=== PATIENT | male | born 1935 | race Caucasian/White ===

== ENCOUNTER → 2016-06-18 | Outpatient (CLI) | payer BC ==
[~2016-06-18] MED LIST: ACET-1256 PO; AVD5 PO; CHOL1CAP57 PO; FLUO40CA8 PO; OMEP20TA PO; SIMV40TA2 PO; STLS PO; ZOLP12.5 PO
--- NOTE | 2016-06-18 14:33 | DIAGNOSTIC IMAGING REPORT ---
RIGHT ELBOW 3 VIEWS CLINICAL HISTORY: Right elbow pain and swelling. No reported history of trauma. FINDINGS: 3 views of the right elbow are obtained. No prior studies are available for comparison at the time of dictation. The skeletal structures are osteopenic. There is no radiographic evidence of fracture. There is degenerative spurring from the radial head. Enthesophytes arise from the lateral humeral epicondyle. There is no joint effusion. A large enthesophyte is seen at the triceps insertion. Mild dorsal soft tissue edema is noted. IMPRESSION: 1. Osteopenia and degenerative change as above. No acute bony abnormality is identified. 2. There is dorsal soft tissue edema, possibly represent bursitis. Clinical correlation will be required. Electronically signed by: Sukhi Larose M.D. 06/18/2016 2:31 PM
== END | disposition home or self-care (01) ==
LOC: C.RAD1850 14:14
PROVIDERS: ATTEND Nurse Practitioner Family
DX: M25.521 Pain in right elbow (principal); M85.80 Other specified disorders of bone density and structure, unspecified site

== ENCOUNTER → 2016-08-06 | Outpatient (CLI) | payer BC | END | disposition home or self-care (01) | LOC: C.RDSM 13:45 | PROVIDERS: ATTEND Physical Medicine & Rehabilitation Sports Medicine | DX: M25.561 Pain in right knee (principal) ==

== ENCOUNTER → 2016-09-07 | Outpatient (CLI) | payer BC | END | disposition home or self-care (01) | LOC: C.RDSM 09-05 12:04 | PROVIDERS: ATTEND Physical Medicine & Rehabilitation Sports Medicine | DX: M25.522 Pain in left elbow (principal) ==

== ENCOUNTER → 2016-11-07 | Outpatient (CLI) | payer BC ==
[~2016-11-07] MED LIST changes: -ZOLP12.5 PO
--- NOTE | 2016-11-07 12:11 | DIAGNOSTIC IMAGING REPORT ---
PET/CT HISTORY: Esophageal cancer. TECHNIQUE: PET/CT was performed from the base of the skull through the pelvis following the intravenous administration of 15 mCi of F18-FDG. Non-contrast CT imaging was performed over the same range without breath-hold for attenuation correction of PET images and anatomic correlation, but not for primary interpretation as it is not of standard diagnostic quality. CT DOSE: COMPARISON: PET CT 04/18/2016. FINDINGS: HEAD AND NECK: There is no FDG-avid disease or significant lymphadenopathy in the imaged portions of the head and the neck. Vocal cord paralysis is again noted. CHEST: The patient is status post esophagectomy with gastric pull-up. Stable 6 mm upper right peritracheal lymph node. This does not demonstrate abnormal FDG uptake. The superior mediastinal lymph node adjacent to the left proximal portion of the gastric pull-up measures 1.5 x 1.0 cm. This is similar in size compared to the prior study. However, this now demonstrates moderate FDG uptake with an SUV max of 4.1. No additional sites of FDG avid disease within the chest. Right posterior pleural thickening remains unchanged. No change in the 2 cm nodular density at the base of the right lower lobe which favors atelectasis or scarring. This does not demonstrate abnormal FDG uptake. Small patchy density at the base of the lingula has improved. There is a 1 cm groundglass irregular nodule within the right upper lobe on image 91. This remains unchanged. This does not demonstrate abnormal FDG uptake. ABDOMEN/PELVIS: A focal 1.5 cm area of moderate FDG uptake within the left hepatic lobe on image 119 within SUV max of 4.1. No definite corresponding lesion on CT. This could represent misregistration with the adjacent bowel. Stable hypodense lesions within the liver which likely represent cysts. No FDG avid retroperitoneal or pelvic lymphadenopathy. Colonic diverticulosis. The prostate gland is enlarged. 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 MUSCULOSKELETAL: There is no FDG-avid or destructive bone lesion. IMPRESSION: 1. Interval development of moderate FDG uptake associated with the left superior mediastinal lymph node consistent with progression of disease. 2. A focal 1.5 cm area of moderate FDG uptake within the left hepatic lobe. There is no definite corresponding lesion on CT. This may represent misregistration with the adjacent bowel. However, this bears watching future examinations to exclude a developing metastatic lesion. 3. Otherwise, no FDG avid disease identified. 4. Stable 1 cm irregular groundglass nodule within the right upper lobe. This does not demonstrate abnormal FDG uptake. However, the stability favors a low-grade neoplasm. Electronically signed by: Nathaniel Ivory M.D. 11/07/2016 12:10 PM Dictated Date/Time: 11/07/2016 11:45 AM
== END | disposition home or self-care (01) ==
LOC: C.PET 08:10
PROVIDERS: ATTEND Internal Medicine Hematology
DX: C15.5 Malignant neoplasm of lower third of esophagus (principal); R91.1 Solitary pulmonary nodule; R93.2 Abnormal findings on diagnostic imaging of liver and biliary tract

== ENCOUNTER → 2017-01-30 | Outpatient (CLI) | payer BC ==
--- NOTE | 2017-01-30 13:00 | DIAGNOSTIC IMAGING REPORT ---
TWO VIEW CHEST CLINICAL HISTORY: Bronchitis. FINDINGS: PA and lateral chest radiographs are compared to study dated 12/21/2015 and correlated with chest CT dated 06/28/2014. The cardiomediastinal silhouette is unremarkable. There is atherosclerotic calcification of the thoracic aorta. Chronic interstitial thickening is similar to previous. No airspace consolidation or pleural effusion is identified. There is no pneumothorax. The skeletal structures are osteopenic. Degenerative change is noted throughout the thoracic spine. IMPRESSION: No active disease in the chest. Electronically signed by: Sukhi Larose M.D. 01/30/2017 12:59 PM Dictated Date/Time: 01/30/2017 12:57 PM
== END | disposition home or self-care (01) ==
LOC: C.RAD 12:10
PROVIDERS: ATTEND Internal Medicine
DX: J40 Bronchitis, not specified as acute or chronic (principal)

== ENCOUNTER → 2017-04-29 | Outpatient (CLI) | payer BC ==
[2017-04-29 15:48] LABS: BASO % 0.2 %; BASO ABS # 0.01 K/uL (0-0.2); COMPLETE YES; EOS % 2.1 %; HEMATOCRIT 42.4 % (42-52); IG% 0.2 %; LYMPH % 28.1 %; LYMPH ABS # 1.59 K/uL (1.2-3.4); MEAN CELL VOLUME 91.6 fL (80-100); MEAN CORPUSCULAR HEMOGLOBIN 30.9 pg (25-34); MEAN CORPUSCULAR HGB CONC 33.7 g/dl (32-36); MEAN PLATELET VOLUME 9.4 fL (7.4-10.4); MONO % 9.7 %; NEUT % 59.7 %; PLATELET COUNT 284 K/uL (130-400); RED BLOOD COUNT 4.63 M/uL (4.7-6.1); WHITE BLOOD COUNT 5.66 K/uL (4.8-10.8)
[2017-04-29 16:00] LABS: ALT/SGPT 24 U/L (12-78); AST/SGOT 24 U/L (15-37); BLOOD UREA NITROGEN 20 mg/dl (7-18); BUN/CREATININE RATIO 14.8 (10-20); CALCIUM 8.8 mg/dl (8.5-10.1); CARBON DIOXIDE 27 mmol/L (21-32); CHLORIDE 107 mmol/L (98-107); CREATININE 1.36 mg/dl (0.60-1.40); GLUCOSE 93 mg/dl (70-99); POTASSIUM 3.5 mmol/L (3.5-5.1); SODIUM 142 mmol/L (136-145)
[2017-04-29 16:10] LABS: ALB/GLOB RATIO 0.9 (0.9-2); ALKALINE PHOSPHATASE 96 U/L (45-117); THYROID STIMULATING HORMONE 0.977 uIu/ml (0.300-4.500)
== END | disposition home or self-care (01) ==
LOC: C.LABSPEC 15:28
PROVIDERS: ATTEND Internal Medicine
DX: C15.9 Malignant neoplasm of esophagus, unspecified (principal); R41.3 Other amnesia

== ENCOUNTER 2017-05-17 15:53 | Inpatient (IN) | payer BC, OTHER ==
[~2017-05-17] VITALS: Ht 171.4 cm; Wt 67.5 kg
[~2017-05-17 15:53] MED LIST changes: -OPTIRAY 320 IV PRN
[2017-05-17] MEDS ORDERED: ONDANSETRON INJ 8 MG in DEXTROSE 5% 50ML 50 ML IV PRN (16:00)
[2017-05-17] MEDS: DEXAMETHASONE INJ 10 MG in SYRINGE 0 ML IV ONE ×2 (16:30→17:45)
[2017-05-17 16:34] VITALS: BP 143/84; PULSE 91; TEMP 36.6; O2SAT 96
[2017-05-17 17:00] VITALS: BP 143/84; PULSE 91; TEMP 36.6; Ht 171.4 cm; Wt 67.5 kg
[2017-05-17 17:05] LABS: BASO % 0.2 %; BASO ABS # 0.01 K/uL (0-0.2); EOS % 1.7 %; HEMATOCRIT 43.5 % (42-52); IG% 0.2 %; LYMPH % 28.2 %; LYMPH ABS # 1.33 K/uL (1.2-3.4); MEAN CELL VOLUME 90.1 fL (80-100); MEAN CORPUSCULAR HEMOGLOBIN 30.4 pg (25-34); MEAN PLATELET VOLUME 8.7 fL (7.4-10.4); MONO % 5.1 %; NEUT % 64.6 %; PLATELET COUNT 271 K/uL (130-400); RED BLOOD COUNT 4.83 M/uL (4.7-6.1); WHITE BLOOD COUNT 4.71 K/uL (4.8-10.8)
[2017-05-17 17:16] LABS: PARTIAL THROMBOPLASTIN RATIO 1.2; PROTHROMBIN TIME (PATIENT) 10.6 SECONDS (9.0-12.0)
[2017-05-17 17:37] LABS: ALB/GLOB RATIO 1.1 (0.9-2); ALKALINE PHOSPHATASE 106 U/L (45-117); ALT/SGPT 23 U/L (12-78); AST/SGOT 26 U/L (15-37); BLOOD UREA NITROGEN 18 mg/dl (7-18); BUN/CREATININE RATIO 13.1 (10-20); CARBON DIOXIDE 29 mmol/L (21-32); CHLORIDE 103 mmol/L (98-107); CREATININE 1.36 mg/dl (0.60-1.40); GLUCOSE 185 mg/dl (70-99); SODIUM 137 mmol/L (136-145)
[2017-05-17 17:38] LABS: COMPLETE YES; MEAN CORPUSCULAR HGB CONC 33.8 g/dl (32-36)
[2017-05-17] MEDS ORDERED: ALPRAZOLAM 0.5 MG TAB PO PRN (17:45)
[2017-05-17] MEDS: DEXAMETHASONE INJ 4 MG in SYRINGE 0 ML IV SCH ×2 (17:49→22:16)
--- NOTE | 2017-05-17 18:18 | Radiation Oncology Consult ---
Radiation Oncology Consult Date / Reason May 17, 2017. Physicians Primary Care Provider: Dr. Ben Vargas Medical Oncologist: Dr. Iverson/ Radiation Oncologist: Dr. Faith Lacy Diagnosis (1) METASTATIC ESOPHAGEAL CA, BRAIN METS Stage: IV History of Present Illness I am seeing Mr. Fernandez in consultation at the request of Dr. Ben Vargas. The patient was seen at bedside and his was present for the entire consultation. ECOG PS: 1 Mr. Fernandez is a 81-year-old gentleman who presents with a history of recurrent metastatic esophageal cancer. As per the , the patient was recently going to restart chemotherapy due to recurrent disease (medical records from [facility] are unavailable at the time of consultation). The patient did have previous chemotherapy and radiation therapy in the past. More recently, the patient was complaining of issues with memory. Dr. Ben Vagras, his primary care physician, ordered a CT of the head without contrast on 05/17/2017 which revealed: "IMPRESSION: 1. Heterogeneous hyperattenuating intra-axial mass containing central calcifications involves the left temporal lobe measuring up to 5.2 cm. Extensive associated vasogenic edema is noted with sulcal effacement and mild rightward midline shift of 2 mm. Primary glial neoplasm or metastatic disease are differential considerations. Neurosurgical consultation and follow- up MRI of the brain with and without contrast recommended. 2. 11 x 4 mm focal area of low-attenuation of the left thalamus medial to the mass may reflect reactive edema or small infarction. 3. Atrophy with chronic microvascular ischemic changes." Dr. Ben Vargas has sent the patient [facility] for direct admission. We are now being asked to evaluate the patient for consideration of radiation therapy. Currently, the patient is stable overall. The patient denies significant headaches however he does admit to issues with short-term memory. He does have some fatigue. Pacemaker Hx Pacemaker: No Past History Past Medical/Surgical History: Reflux, Depression, Other (Insomnia, Hyperlipidemia) Specify Any Cancer Diagnosis: Esophageal cancer Surgical History Surgeries: Yes Surgeries & Dates: Bilateral trigger finger release Right Carpal Tunnel Release Radiation History History of Radiation Therapy: 08/2007 - 4500 cGy to the chest Chemotherapy History History of Chemotherapy: Previous history of chemotherapy. Was planning to undergo chemotherapy treatment shortly. Social History Smoking Status: Never Smoker Hx Tobacco Use In Past Year?: No Do You Dip or Chew Tobacco: Yes (QUIT 2007) Hx Alcohol Use: Yes (Occasionally) Hx Substance Use : No Allergies Coded Allergies: Iodinated Contrast Media (Verified Adverse Reaction, Unknown, HYPOTENSION , 05/17/17) Home Medications Scheduled Cholecalciferol (Vitamin D3), 1,000 INTUNIT PO QAM Dutasteride (Avodart *), 0.5 MG PO QAM Fluoxetine (Prozac), 40 MG PO QAM Omeprazole (Omeprazole), 20 MG PO BID Simvastatin (Zocor), 40 MG PO QAM Stool Softener (Stool Softener), 1 TAB PO QAM Scheduled PRN Acetaminophen (Tylenol), 1,000 MG PO Q6 PRN for Pain Review of Systems Comments: Comprehensive 13 system review completed. Physical Exam Height: (Feet) (Inches) (Centimeters) (Meters) Weight: (Pounds) (Ounces) (Kilograms) (Grams) Date Time Temp Pulse Resp B/P (MAP) Pulse Ox O2 Delivery O2 Flow Rate FiO2 05/17/17 16:34 36.6 91 18 143/84 (103) 96 General Appearance: WD/WN, no apparent distress Head: normocephalic, atraumatic Eyes: normal inspection Neck: supple, no adenopathy Respiratory/Chest: chest non-tender, lungs clear, normal breath sounds, no respiratory distress Cardiovascular: regular rate, rhythm, no edema, no gallop, no JVD, no murmur Abdomen/GI: normal bowel sounds, non tender, soft, no organomegaly, no pulsatile mass Back: normal inspection Extremities: normal inspection Neurologic/Psych: lotus notes developer II-XII nml as tested, alert, oriented x 3 Skin: normal color, warm/dry, no rash Pain Management Patient Reports Pain: No Patient Preferred Pain Scale: 0 - 10 Initial Pain Intensity: 0.0 Pain Management Plan No pain management plan as per radiation oncology. Laboratory Laboratory Results: not applicable Pathology Pathology Results: were reviewed, pending (Outside results unavailable) Imaging Imaging Studies: were reviewed, and pertinent findings noted below Imaging Comments Patient: SHANON FERNANDEZ Address1: [address] Rec: [id number] Address2: Acct ID: [id number] [facility] Zip: [place] [address] Date: 1935 Sex: M Room/Bed: Ref Phy: Butch Ribera M.D. SC: KalynCTS Att Phy: Butch Ribera M.D. Report #: [id number] Veronika Phy: Butch Ribera M.D. Test: HWO Admit Phy: Cake Icer And Packer: MARYAM Interpreting Phy: Vishal Wallace D.O. Diagnosis: MEMORY DEFICIT Ordering Phy: Butch Ribera M.D. Service Date: 05/17/17 Admit Date: 05/17/17 MNE: [id number] CONF: DICTATED BY: Vishal Wallace D.O.]] CC: Butch Ribera M.D. Endcc: [~ rep ct add3]] HEAD WITHOUT CONTRAST (CT) CLINICAL HISTORY: 81 years-old Male with MEMORY DEF. Memory loss . History of metastatic esophageal cancer. TECHNIQUE: Multiple axial CT images of the head were obtained without contrast. A dose lowering technique was utilized adhering to the principles of ALARA. CT DOSE: 614.27 mGy.cm COMPARISON: PET CT 04/17/2017. FINDINGS: There is a hyperattenuating mass heterogeneous mass containing areas of internal calcification within the left temporal lobe which appears intra-axial measuring 5.2 x 3.5 cm with extensive degree of surrounding vasogenic edema. There is associated sulcal effacement with gyral expansion within this distribution. 2 mm rightward midline shift with subfalcine herniation. There is partial effacement of the left lateral ventricle involving the frontal horn, body, atria and temporal horn. No hydrocephalus. There is mild to moderate atrophy with background chronic microvascular ischemic changes. Vascular calcifications are seen at the level the skull base. Focal area of low-attenuation measuring 11 x 4 mm is seen within the distribution of the left thalamus medial to the mass. No calvarial fracture. Mastoid air cells and middle ear cavities are clear. Soft tissues are unremarkable. Orbits are symmetric. IMPRESSION: 1. Heterogeneous hyperattenuating intra-axial mass containing central calcifications involves the left temporal lobe measuring up to 5.2 cm. Extensive associated vasogenic edema is noted with sulcal effacement and mild rightward midline shift of 2 mm. Primary glial neoplasm or metastatic disease are differential considerations. Neurosurgical consultation and follow-up MRI of the brain with and without contrast recommended. 2. 11 x 4 mm focal area of low-attenuation of the left thalamus medial to the mass may reflect reactive edema or small infarction. 3. Atrophy with chronic microvascular ischemic changes. Patient: SHANON FERNANDEZ Address1: [address] [place] [address] Rec: [id number] Address2: Acct ID: [id number] [facility] Zip: [place] [address] Date: 1935 Sex: M Room/Bed: Ref Phy: Butch Ribera M.D. SC: C.PET Att Phy: Shanon Iverson M.D. Report #: [id number] Veronika Phy: Butch Ribera M.D. Test: PETCTST Admit Phy: Cake Icer And Packer: BIJAN Interpreting Phy: Marbin Neri M.D. Diagnosis: LOWER THIRD ESOPHAGUS MALIGNANT NEOPLASM Ordering Phy: Shanon Iverson M.D. Service Date: 04/17/17 Admit Date: 04/17/17 MNE: PWRSCRIBE CONF: DICTATED BY: Marbin Neri M.D.]] CC: Butch Ribera M.D. Wolfe, David W., M.D. Endcc: [~ rep ct add3]] PET/CT SKULL-THIGH CLINICAL HISTORY: ESOPHAGEAL CANCER COMPARISON STUDY: 11/07/2016 FINDINGS: The patient was injected with 12.8 mCi of F 18 labeled FDG. Following the standard induction phase, PET/CT scanning was performed from the skull base to the upper thigh region. Within the base of the right neck, there is a new FDG avid nodule which fuses to a tiny 3 mm lymph node. There are new foci of increased FDG activity with SUV maximum of 6.7, which fuses to an ill-defined nodule abutting the vessels the right cervicothoracic inlet. There is a new focus of increased FDG activity with SUV maximum of 3 fusing to a 4 mm lymph node at the level of the sternal notch. There is a new focus of increased FDG activity with SUV maximum of 6.9 fusing to an ill-defined soft tissue nodule just inferior to the esophageal anastomosis within the left superior mediastinum. There is a new 8 mm right middle lobe pulmonary nodule, which is mildly FDG avid with SUV maximum of 1.9. Areas of presumed right basilar atelectasis remain stable. There is also a new 3 mm right apical pulmonary nodule which is not FDG avid. Within the liver, there is a stable right lobe hepatic hypodensity which is not FDG avid and may represent a cyst. There is no pathologic adrenal gland activity. There is no pathologic sky activity within the abdomen or pelvis. There is physiologic urinary tract and bowel activity. There is no pathologic skeletal activity. IMPRESSION: 1. Progressive metastatic disease. 2. New 8 mm FDG avid right middle lobe pulmonary nodule consistent with a pulmonary metastasis. Also evident is a new 3 mm right apical pulmonary nodule which is not FDG avid. 3. New intensely FDG avid lower cervical and superior mediastinal lymph nodes, consistent with metastatic disease Assessment & Recommendations Mr. Fernandez is a 81-year-old gentleman who presents with metastatic esophageal cancer to the brain. The patient was most recently planning to undergo a course of chemotherapy underneath the supervision of Dr. Iverson for recurrent metastatic disease (records unavailable to temporal consultation to confirm). The patient did have a CT of that without contrast completed today on 2016 which does potentially revealed a large metastatic deposit involving the left temporal lobe. The patient does have some issues with short-term memory. We have been asked to evaluate the patient for consideration of radiation therapy to the brain. After evaluating the patient, I recommended proceeding with an MRI of the brain with contrast to determine his full extent of disease. Additionally, I have discussed the case with Dr. Ben Vargas and we both agreed to initiate decadron to initially help with his symptoms. I have recommended Decadron 4 mg every 6 hours. If the patient continues to remain stable over the weekend, we have agreed to consider palliative whole brain radiation therapy and will bring him down for treatment planning and start radiation therapy on Saturday. I would recommend radiation therapy in 15 fractions. I have also recommended a medical oncology consultation and neurology consultation. We explained the indications, alternatives, benefits, risks and side effects of external beam radiation therapy to the brain. We explain the most common side effects including but not limited to skin erythema, skin break down, hair loss, radiation necrosis, fatigue, short-term memory loss, decreased neurocognitive performance, cerebral edema, hearing loss, damage to cochlea structures, seizures, loss of sensory and or motor function. We explained the treatment planning process and what to expect before during and after treatment. The patient understands and would be willing to consent to treatment. The patient and family had multiple questions which were answered to their full satisfaction. Thank you for allowing us to participate in the care of this patient. This chart was completed in part utilizing [employer] Speech Voice Recognition software. Attempts were made to minimize the grammatical errors, random word insertions, pronoun errors and incomplete sentences. Any formal questions or concerns about the content, text or information contained within the body of this dictation should be directly addressed to the provider for clarification. Faith Lacy MD Department of Radiation Oncology [facility] Total Time In Consultation I spent 30 minutes examining and counseling the patient. I spent 15 minutes completing this note. ADVERTISING SPECIALIST Copy To Butch Ribera M.D.
[2017-05-17] MEDS ORDERED: GADAVIST IV PRN (19:15)
--- NOTE | 2017-05-17 19:29 | DIAGNOSTIC IMAGING REPORT ---
MRI OF THE BRAIN COMBO CLINICAL HISTORY: Esophageal cancer. Metastatic disease. COMPARISON STUDY: CT of the brain dated 05/17/2017. TECHNIQUE: MRI of the brain was performed utilizing various T1 and T2-weighted sequences in the axial, sagittal, and coronal planes. Contrast-enhanced sequences were acquired following the administration of 6.5 cc of Gadavist. FINDINGS: Brain parenchyma: There are age-related involutional changes noting mild patchy subcortical and periventricular microangiopathic disease. There is a heterogeneous mass lesion identified in the left temporal lobe. This is T1 hyperintense suggesting hemorrhage. The lesion measures 4.8 x 5.8 x 3.9 cm. There is susceptibility artifact seen within this lesion on the gradient images which may be related to hemorrhage and/or calcifications. There is significant surrounding edema. This effaces the left lateral ventricle and the overlying cortical sulci. There is approximately 3 mm of [id number] midline shift. This lesion demonstrates an enhancing rim. Internal enhancement is likely present but difficult to delineate due to presumed hemorrhage. No additional enhancing lesion is identified. There is no restricted diffusion typical for acute ischemia. No extra-axial fluid collection is seen. The cerebellar tonsils are normal in configuration. Ventricles, sulci, and cisterns: Prominent secondary to involutional change. Pituitary and sella: Unremarkable. Intracranial vasculature: Normal flow voids are maintained at the skull base. Orbits: The bony orbits are grossly intact. Orbital contents are normal in appearance. Sinuses and mastoids: Clear. Calvarium: Unremarkable. Cervical cord: Partially visualized cervical spinal cord is normal in morphology and signal intensity. IMPRESSION: 1. As seen by CT, there is an approximately 6 cm T1 hyperintense and presumably hemorrhagic mass centered in the left temporal lobe with significant surrounding edema and mild midline shift. This likely represents a hemorrhagic metastasis given the history of esophageal carcinoma. A primary intracranial neoplasm is considered less likely but is the top differential consideration. 2. This lesion demonstrates peripheral enhancement and likely internal enhancement. This is difficult to differentiate given the intrinsic T1 hyperintensity. 3. No additional intracranial lesions are identified. 4. There is no evidence of acute ischemia. Electronically signed by: Sukhi Larose M.D. 05/17/2017 7:28 PM Dictated Date/Time: 05/17/2017 7:16 PM
--- NOTE | 2017-05-17 19:41 | Medical Consult ---
Consultation Date of Consultation: May 17, 2017. Attending Physician: Butch Ribera M.D. Reason for Consultation: history of esophageal cancer abnormal CT head with mass involving the left temporal lobe and vasogenic edema History of Present Illness 81 year old male with history of esophageal cancer followed by Dr Iverson. He recevied concurrent preoperative chemoRT at initial diagnosis follwoed by surgery at [facility] He was subsequently found to have recurrent disease and received chemotherapy with xeloda oxaliplatin and hereptin in 2011 In 03/2013 PET-CT scan showed no evidence of active disease In 12/2014 PET-CT scan showed sky changes in the paraesophageal areas and he underwent biopsy at that time that was positive for recurrence He received chemotherapy with xeloda, oxaliplatin and herceptin and his follow up scan showed good response and chemotherapy was discontinued and the patient was followed by observation In 01/2016 he had a PET-CT scan which showed persistence of a LN that had increased from 1.2 to 1.5cm and he was given the option of resuming herceptin or expectant follow up and he opted to be followed expectantly PET-CT scan in 10/[address] Iverson discussed with him and he was followed expectantly He had a follow up PET-CT scan PET-CT scan on 04/17/17 which showed progressive metastatic disease, new 8mm FDG avid RML nodule consistent with pulmonary metastasis and a new 3mmright apical pulmonary nodule which is not FDG avid. He also had evidence of new hypermetabolic lower cervical and superior mediastinal lymph nodes. Last follow up with Dr Iverson was on 04/23/17 and his plan was to resume herceptin due to the progression on the patient's PET-CT scan. Patient and his and daughter state that from about 6 weeks he notice mild frontal headache/discomfort on and off and memory changes. He states that he was forgetting names of his grandchildren and friends though he knew who they were. Also notice word finding difficulty and was confusing words. He states that this morning he had mild dizziness when he stood up for a few seconds but then it resolved. He denies any nausea or vomiting. He denies any paresthesias He denies any weakness He states that he has chronic lower abdominal pain Also recently completed a course of antibiotic for a URI. He denies any cough or shortness of breath He had CT head showing : "1. Heterogeneous hyperattenuating intra-axial mass containing central calcifications involves the left temporal lobe measuring up to 5.2 cm. Extensive associated vasogenic edema is noted with sulcal effacement and mild rightward midline shift of 2 mm. Primary glial neoplasm or metastatic disease are differential considerations. Neurosurgical consultation and follow-up MRI of the brain with and without contrast recommended. 2. 11 x 4 mm focal area of low-attenuation of the left thalamus medial to the mass may reflect reactive edema or small infarction. 3. Atrophy with chronic microvascular ischemic changes." ECOG PS 1 Past Medical/Surgical History PMH/PSH: high cholesterol, enlarged prostate, recurrent esophageal cancer, depression, insomnia EGD with biopsy, carpal tunnel surgery, surgical resection for esophageal cancer after chemoRT Social History lives with his Smoking Status: Never Smoker Smokeless Tobacco Use: Yes Alcohol Use: rare Drug Use: none Marital Status: Housing Status: lives with family Allergies Coded Allergies: Iodinated Diagnostic Agents (Verified Adverse Reaction, Intermediate, HYPOTENSION, 05/17/17) Current Inpatient Medications Current Inpatient Medications Medications (Trade) Dose Ordered Sig/Helder Route Start Time Stop Time Status Last Admin Dose Admin Dexamethasone Sodium Phosphate 4 mg/Syringe 1 ml @ 1 mls/min Q6H IV 05/17/17 22:00 06/16/17 21:59 Ondansetron HCl 8 mg/Dextrose 54 ml @ 200 mls/hr Q4H PRN IV 05/17/17 16:00 06/16/17 15:59 Fluoxetine HCl (Prozac Cap) 40 mg QAM PO 05/18/17 08:00 06/17/17 07:59 Simvastatin (Zocor Tab) 40 mg QAM PO 05/18/17 08:00 06/17/17 07:59 Pantoprazole Sodium (Protonix Tab) 40 mg QAM PO 05/18/17 08:00 06/17/17 07:59 Finasteride (Proscar Tab) 5 mg QAM PO 05/18/17 08:00 06/17/17 07:59 Alprazolam (Xanax Tab) 0.5 mg Q6H PRN PO 05/17/17 17:45 06/16/17 17:44 Review of Systems Constitutional: + fatigue (mild), No fever, No chills, No sweats, No weight loss, No weakness Eyes: No worsening of vision, No eye pain, No redness, No diplopia ENT: No unusual epistaxis, No nasal symptoms, No sore throat, No trouble swallowing Respiratory: + cough (occasional. states improved since he recently took antibiotic), No sputum, No wheezing, No shortness of breath, No dyspnea on exertion, No dyspnea at rest, No hemoptysis Cardiovascular: No chest pain, No orthopnea, No PND, No edema, No palpitations Abdomen: No pain, No nausea, No vomiting, No diarrhea, No constipation, No GI bleeding Musculoskeletal: + joint pain (states that he has mild arthritis in his hands, chronic ), No muscle pain, No swelling, No calf pain Genitourinary - Male: No hematuria, No dysuria, No urinary frequency Neurologic: + memory loss, No paralysis, No weakness, No numbness/tingling, No vertigo, No balance problems Psychiatric: + insomnia, No depression symptoms, No anhedonism, No anxiety Endocrine: No fatigue, No excessive thirst, No excessive urination Hematologic / Lymphatic: No abnormal bleeding/bruising, No swollen lymph nodes Integumentary: No rash, No itch Physical Exam Date Time Temp Pulse Resp B/P (MAP) Pulse Ox O2 Delivery O2 Flow Rate FiO2 05/17/17 17:00 36.6 91 18 143/84 Room Air 05/17/17 16:34 36.6 91 18 143/84 (103) 96 General Appearance: WD/WN, no apparent distress Head: normocephalic, atraumatic Eyes: PERRL, EOMI, sclerae normal ENT: pharynx normal Neck: supple, no adenopathy, no JVD Respiratory/Chest: chest non-tender, lungs clear, normal breath sounds, no respiratory distress, no accessory muscle use Cardiovascular: regular rate, rhythm, no edema, no gallop, no murmur Abdomen/GI: normal bowel sounds, non tender, soft, no organomegaly Back: normal inspection, no CVA tenderness Extremities/Musculoskelatal: no calf tenderness, no pedal edema, non-tender Neurologic/Psych: alert (sensation to LT intact, motor strength 5/5 in bilateral upper and lower extremity, no pronator drift), normal mood/affect, oriented x 3, + pertinent finding (speech is clear, follows simple commands) Skin: warm/dry, no rash Lymphatic: no adenopathy Laboratory Results Last 24 Hours Test 05/17/17 15:58 White Blood Count 4.71 K/uL Red Blood Count 4.83 M/uL Hemoglobin 14.7 g/dL Hematocrit 43.5 % Mean Corpuscular Volume 90.1 fL Mean Corpuscular Hemoglobin 30.4 pg Mean Corpuscular Hemoglobin Concent 33.8 g/dl Platelet Count 271 K/uL Mean Platelet Volume 8.7 fL Neutrophils (%) (Auto) 64.6 % Lymphocytes (%) (Auto) 28.2 % Monocytes (%) (Auto) 5.1 % Eosinophils (%) (Auto) 1.7 % Basophils (%) (Auto) 0.2 % Neutrophils # (Auto) 3.04 K/uL Lymphocytes # (Auto) 1.33 K/uL Monocytes # (Auto) 0.24 K/uL Eosinophils # (Auto) 0.08 K/uL Basophils # (Auto) 0.01 K/uL RDW Standard Deviation 44.1 fL RDW Coefficient of Variation 13.3 % Immature Granulocyte % (Auto) 0.2 % Immature Granulocyte # (Auto) 0.01 K/uL Prothrombin Time 10.6 SECONDS Prothromb Time International Ratio 1.0 Activated Partial Thromboplast Time 30.1 SECONDS Partial Thromboplastin Ratio 1.2 Sodium Level 137 mmol/L Potassium Level 4.0 mmol/L Chloride Level 103 mmol/L Carbon Dioxide Level 29 mmol/L Anion Gap 5.0 mmol/L Blood Urea Nitrogen 18 mg/dl Creatinine 1.36 mg/dl Estimated GFR () 57.0 Estimated GFR (Non- 49.1 BUN/Creatinine Ratio 13.1 Random Glucose 185 mg/dl Calcium Level 9.0 mg/dl Total Bilirubin 0.5 mg/dl Aspartate Amino Transf (AST/SGOT) 26 U/L Alanine Aminotransferase (ALT/SGPT) 23 U/L Alkaline Phosphatase 106 U/L Total Protein 7.2 gm/dl Albumin 3.8 gm/dl Globulin 3.4 gm/dl Albumin/Globulin Ratio 1.1 Assessment & Plan 81 year old male with history of T3N1 esophageal ccnacer s/p chemoRT followed by surgery, then subsequently developed recurrence s/p xeloda and oxaliplatin and herceptin in 2011 and 2014 for recurrent disease and more recently has been followed expectantly Recent PET-CT scan showed progression and Dr Iverson saw him on 04/23/17 and planned for herceptin as he had over-expression of Her 2 tennille on prior biopsy He had a CT scan today showing left temporal mass measuring 5.2x3.5cm with extensive degree of surrounding vasogenic edema and a focal area of low attenuation of the left thalamus medial to the mass which may reflect reactive edema or small infarction I discussed with the patient and his family and Dr Ben Vargas He received dexamethasone 10mg IV x 1 Agree with obtain MRI brain to evaluate the mass lesion as well as if he has other lesions continue with dexamethasone 4mg IV every 6hrs Recommended Neurology or Neurosurgery input regarding any need for seizure prophylaxis after MRI brain would recommend consider obtain Neurosurgery input as well regarding whether if he is a candidate for any NS intervention from their standpoint I spoke with Rad Onc Dr Lacy this evening and he agreed with steroids and neurology consult Dr Ben Vargas has discussed with him and Dr Lacy recommended radiation and discussed plan for RT with the patient and family Discussed with Dr Ben Vargas and he has discussed with Neurology and said no prophylactic anti-seizure med was recommended at this time Patient denies any headache or symptoms at this time In terms of the progression on his recent PET-CT scan, he will need to follow up in the office upon discharge, and further treatment can be considered after completion of treatment of brain metastasis Thank you for allowing me to participate in the care of this patient
--- NOTE | 2017-05-17 20:14 | History and Physical ---
History & Physical Date of Service May 17, 2017. History & Physical ADMISSION DATE : 05/17/2017 CHIEF COMPLAINT : 81-year-old male admitted today with recent onset of rapid progressive memory deficit and CT scan findings of a large left temporal mass with significant edema. 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 PRESENT ILLNESS : Patient with known adenocarcinoma of the distal esophagus. First diagnosed in 2007. Patient underwent preoperative radiation and chemotherapy. Subsequently he underwent resection of his esophagitis and cervical esophagus to stomach anastomosis. The surgery was done by Dr. Jose Bernal at [facility]. Patient did well initially for many years. Subsequently in 2011 he developed supraclavicular adenopathy and fine-needle aspiration showed evidence of adenocarcinoma which was a metastatic disease related to his adenocarcinoma of the esophagus. Patient has been seen in oncology by Dr. Lauri Iverson and had received Chemotherapy. The last medication he has been on was Herceptin. He has had serial PET scans. Showing evidence of progressive disease. His last PET scan showed evidence of new lesions in his mediastinum and lung. Dr. Iverson was planning on restarting Herceptin but this has not been done yet. Patient was seen in my office about 2 weeks ago. He was in the office with his . He was complaining of progressive difficulty with his memory. He could not remember his children's names. Could not remember anything. He was taking melatonin and lorazepam to help him sleep because of his chronic insomnia. He thought probably the problem was related to what he was taking so he stopped the medication but the problem continues to be quite progressive from what his described. For the last 15 years he has been going to [place] for hunting and he decided not to go this year because of his memory issue. Multiple laboratory tests were done including CBC, chemistry profile, TSH, B12. All these tests were quite unremarkable. He was scheduled for a CT scan of the head. Initially the scan was ordered without and with contrast that in his history there is some atypical reaction to IV contrast so the CT scan was done without contrast. Showed evidence of a mass containing calcifications involving the left temporal lobe measuring about 5.2 cm in diameter. There was extensive associated edema. Was a midline shift toward the right side of about 2 mm. Other than the memory deficit patient has not had any problem with any headache or dizziness or any difficulty with his balance or equilibrium. He continues to carry on his activity. Has not had any other symptoms. After the CT scan results were available I did meet with the patient and his in my office and arrangements were made for admission. PAST MEDICAL HISTORY : * Adenocarcinoma of the distal esophagus. First diagnosed in 2007. Treated with preoperative chemotherapy and radiation therapy. Underwent surgery. Initially he did quite well. In 2011 he had an abnormal PET scan showing evidence of recurrent disease. Biopsy of the left supraclavicular lymph node was positive for adenocarcinoma. He was treated with chemotherapy. 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 Long-standing. Treated. * Chronic insomnia * History of surgery for sinus congestion and inflammation * History of surgery for trigger fingers in both hands * Chronic spasms in his legs. * History of an enlarged prostate and elevated PSA. He has a benign prostatic hypertrophy. * Depression. Treated. SOCIAL HISTORY : He is . Had 3 children. He did smoke about half a pack per day for about 20 years but he stopped about 30 years ago. He also did chew tobacco and he stopped in 2007. Occasional alcohol. No excessive coffee tea or soft drinks. He is retired. He worked with [employer] ([employer]) in the past FAMILY HISTORY : His father in his 40s in an accident. His mother at age 72 had coronary artery disease He has 2 brothers. Both have coronary artery disease. One brother has polycythemia vera. He has one sister. Children are well. ALLERGIES : IV contrast reaction in the past. CURRENT MEDICATIONS : * Baclofen 5 mg twice a day * Proscar 5 mg daily * Simvastatin 40 mg daily * Fluoxetine 40 mg daily * Prilosec 20 mg daily * Multivitamin 1 daily * Flonase nasal spray 2 sprays in each nostril as needed REVIEW OF SYSTEMS : He denied any headache. No dizziness no lightheadedness. He was glasses. No recent change in his vision. No earaches or throat or neck pain. No chest pain no shortness of breath. Cough. No abdominal pain no nausea or vomiting. He does have chronic problem with reflux. Dyspepsia. No problem with his bowel movements. No urinary problem as long as he is taking his medications. He does have chronic pain in his back. Chronic leg spasms. PHYSICAL EXAMINATION : General: He is well-developed. No distress. His recorded weight is 67.5 kg height 171.5 cm BMI 22.9 Vital signs: Blood pressure 143/84, pulse 91, respiration 18, temperature 36.6, oxygen saturation 96% on room air. Skin is warm and dry. No rash. HEENT: He was glasses. Has upper dentures. Decreased hearing. He usually has hearing aids but he was not wearing them today. No mucosal abnormalities in his nose mouth or throat Neck is supple. Nontender. No lymph node enlargement. No JVD. No carotid bruit. Chest: Scar from prior surgery. Heart: Regular heart sounds with 1/6 systolic murmur. No rub or gallop. Lungs are clear. Axilla no adenopathy. Breasts are normal. Abdomen is soft nontender without organomegaly or masses Back no spinal tenderness Extremities no edema clubbing or cyanosis. Osteoarthritic changes. Scars in his hands from prior surgeries. Good pulses. Neurological examination he is alert and oriented. He is not wearing his hearing aids and communication with him tonight is difficult because he does not really hear very well. There is no evidence of any deficit. No problem with his balance or equilibrium. LABORATORY TESTS : WBC count 4710, hemoglobin 14.7, hematocrit 43.5, platelet count 271,000. Prothrombin time 10.6, INR 1.0, PTT 30.1. Sodium 137, potassium 4.0, chloride 103, CO2 29, BUNs 18, creatinine 1.36, glucose 185, calcium 9.0, total bilirubin 0.5, AST 26, AST 23, alkaline phosphatase 106, total protein 7.2, albumin 3.8, globulin 3.4. ASSESSMENT : * Large mass left temporal area suspected of being metastatic disease. * Adenocarcinoma of the distal esophagus in 2007 with recurrent disease metastatic to the mediastinum and lungs. * Recent onset of memory deficit * Hypercholesterolemia * Insomnia * Degenerative disc disease of the lumbar spine and spinal stenosis * Osteoarthritis * Dyspepsia and reflux * Depression PLAN : As noted I met with the patient and his in my office and notified them of the findings on the CT scan of the hand. Arrangements were made for admission to medical bed. Resuscitation level I. All his laboratory tests were ordered. Prior to his admission I did speak with his oncologist Dr. Lauri Iverson and discussed with him the findings. Dr. Iverson is retiring. Dr. Telles will be taking over the patient's care. I also spoke with Dr. cash Lacy in radiation oncology. Auscultations were requested. Also I spoke with Dr. Yuliya Matos in neurology. The initial plan is to proceed with an MRI of the brain without and with contrast. Patient was started on IV Decadron. We decide on the plan of treatment. The way stands now Dr. Lacy is intending on initiating whole brain radiation therapy on Saturday. That that may change depending on the MRI results. Will decide on the need for neurosurgery consultation at [facility]. Dr. Puga did not feel that the patient needed to be started on antiseizure medication at this point. We'll wait for the MRI results. Decide on transferring patient to [facility] for evaluation and recommendations regarding any potential consideration for surgery. Keeping in mind that patient does have known adenocarcinoma of the esophagus and he has progressive disease as documented on his last PET scan.
[2017-05-17 23:01] VITALS: BP 120/66; PULSE 84; TEMP 36.6; O2SAT 90
--- NOTE | 2017-05-18 02:39 | Progress Note ---
Progress Note Date of Service May 18, 2017. Progress Note MRI of the brain with and without and with contrast showed a 6 cm hemorrhagic mass centered in the left temporal lobe with significant surrounding edema and mild midline shift approximately 3 mm [id number]. The diagnostic possibilities include a hemorrhagic metastases given the history of esophageal adenocarcinoma. A primary cerebral neoplasm is also a possibility. I explained the findings to the patient and his family both his and daughter. In the morning I was call [facility] to discuss the findings with neurosurgeon and decide on transferring the patient to [facility] for further evaluation with possible biopsy and surgical intervention. Everyone is in agreement.
[2017-05-18] MEDS: DEXAMETHASONE INJ 4 MG in SYRINGE 0 ML IV SCH ×2 (04:17→10:16)
[2017-05-18 07:44] VITALS: BP 118/71; PULSE 86; TEMP 36.6; O2SAT 94
[2017-05-18 07:45] LABS: COMPLETE YES; HEMATOCRIT 38.8 % (42-52); IG% 0.2 %; LYMPH % 13.5 %; LYMPH ABS # 0.83 K/uL (1.2-3.4); MEAN CELL VOLUME 88.2 fL (80-100); MEAN CORPUSCULAR HEMOGLOBIN 30.2 pg (25-34); MEAN CORPUSCULAR HGB CONC 34.3 g/dl (32-36); MEAN PLATELET VOLUME 8.5 fL (7.4-10.4); MONO % 0.7 %; NEUT % 85.6 %; PLATELET COUNT 252 K/uL (130-400); WHITE BLOOD COUNT 6.14 K/uL (4.8-10.8)
[2017-05-18 08:00] VITALS: O2SAT 94
[2017-05-18] MEDS ORDERED: SIMVASTATIN 40 MG TAB PO SCH (08:00)
[2017-05-18] MEDS ORDERED: FINASTERIDE 5 MG TAB PO SCH (08:00)
[2017-05-18] MEDS ORDERED: FLUOXETINE HCL 20 MG CAP PO SCH (08:00)
[2017-05-18] MEDS ORDERED: PANTOprazole SOD 40 MG TAB PO SCH (08:00)
[2017-05-18 08:31] LABS: CALCIUM 8.9 mg/dl (8.5-10.1); CREATININE 1.25 mg/dl (0.60-1.40); POTASSIUM 4.1 mmol/L (3.5-5.1)
--- NOTE | 2017-05-18 09:05 | Progress Note ---
Progress Note Date of Service May 18, 2017. Progress Note 81-year-old male admitted with * 6 cm left temporal lobe mass with edema and hemorrhage and 3 mm [id number] shift. * Metastatic adenocarcinoma of the esophagus * Recent onset of memory deficit * Hypercholesterolemia * Mild depression * Insomnia * Degenerative disc disease of the lumbar spine * Osteoarthritis Patient was admitted. MRI of the brain was done without and with contrast. It showed evidence of the 6 cm left temporal mass. There was significant surrounding edema. Also the mass was hemorrhagic. There is a shift from left to right of approximately 3 mm. Patient was started on IV Decadron. Other than his memory deficit patient has been completely asymptomatic. He has not had any headache or dizziness or lightheadedness. Has not had any problem with his vision. No problem with his balance and equilibrium. He continues to carry on his usual activities without any difficulty. Patient was seen in radiation oncology consultation by Dr. Lacy, in oncology by Dr. Telles. A neurology consultation has been requested from Dr. Yuliya Matos. I spoke with her last night. She did not feel that the patient needed to be started on any antiepileptic medication. This morning he is doing well. He does have chronic problem with insomnia. Was not really able to sleep. He was resting comfortably. He has no headache or dizziness or lightheadedness. No blurred vision. No earaches or throat or neck pain. No chest pain no shortness of breath. No cough. No abdominal pain. No nausea no vomiting. No problem urinating. No pain in his back or extremities. EXAMINATION : GENERAL: Well-developed. No distress. VITAL SIGNS: Blood pressure 118/71, pulse 86, respirations 17, temperature 36.6 , oxygen saturation 94% on room air SKIN: Warm and dry. No rash. HEENT: He does have evidence of anisocoria with the left pupil slightly larger than the right one but reactive. He does wear glasses. Markedly decreased hearing. Has dentures. NECK: Supple. Nontender. No lymph node or thyroid enlargement. No JVD. No carotid bruit. Neck scar from prior surgery HEART: Regular heart sounds with 1/6 systolic murmur LUNGS: Clear. ABDOMEN: Soft nontender without organomegaly or masses BACK: No spinal tenderness EXTREMITIES: No edema clubbing or cyanosis. Good pulses NEUROLOGICAL EXAMINATION: He is awake and alert. He is answering appropriately. He does have difficulty with his memory. He was not even able to recall his home phone number. There is no evidence of any lateralized deficit. No problem with his gait or equilibrium. LABORATORY TESTS : WBC count 6140, hemoglobin 13.3, hematocrit 38.4, platelet count 252,000. Sodium 137, potassium 4.1, chloride 104, CO2 25, BUNs 20, creatinine 1.25, glucose 170, calcium 8.9. ASSESSMENT : * Left temporal mass measuring 6 cm in diameter with hemorrhage and edema and [id number] shift of 3 mm. Not sure at this point whether we are dealing with a metastatic disease related to his adenocarcinoma or a primary cerebral malignancy. * Adenocarcinoma of the esophagus with metastases pulmonary and lymph node. His last PET scan showed evidence of progressive disease with new lesions in the mediastinum and lungs. * Memory deficit new-onset. * Gastroesophageal reflux * Depression * Insomnia PLAN : * Continue IV Decadron * Making arrangements for transfer to [facility]. I spoke this morning with Dr. Boyle. The patient was accepted for transfer care. We are in process of finalizing arrangements.
[2017-05-18 10:33] VITALS: BP 118/71; PULSE 86; TEMP 36.6; O2SAT 94
[2017-05-18] MEDS ORDERED: ACETAMINOPHEN 325 MG TAB ONE ×2 (10:51→10:52)
[2017-05-18] MEDS ORDERED: NURSING VERBAL MED ORDER ONE (11:00)
--- NOTE | 2017-05-18 12:26 | NEUROLOGY CONSULTATION ---
DATE OF CONSULTATION: 05/18/2017 REASON FOR CONSULTATION: Left hemispheric mass. HISTORY OF PRESENT ILLNESS: The patient is a 81-year-old right-handed male with known adenocarcinoma of the esophagus initially diagnosed in 2007, status post radiation and chemotherapy. In 2011, he developed supraclavicular adenopathy which fine needle aspiration proved to be adenocarcinoma. His last medication was Herceptin. He has had serial PET scans showing progressive disease with new lesions in the mediastinum and lungs. The patient notes a history of about 4 weeks of difficulty with word finding and some difficulty with memory. He only recently noted some very mild head pain. He has not had any episodes of loss of consciousness, staring spells, focal-jerking activity. He has not had any change in vision, weakness, numbness. An outpatient CT of the head showed a large left hemispheric mass with MRI of the brain shows a large 6 cm hemorrhagic mass centered in the left temporal lobe with significant surrounding edema and midline shift. No other enhancing lesions were noted. The patient was appropriately started on steroids, Dr. Reddy asked my opinion about whether or not he needed anticonvulsants. He is soon to be transferred to [place] for neurosurgical opinion regarding the need to biopsy. PAST MEDICAL HISTORY: Notable for the above, degenerative disk disease, hyperlipidemia, and chronic insomnia. PAST SURGICAL HISTORY: Chronic spasms in his legs, elevated PSA, depression, history for sinus congestion and inflammation and trigger finger. SOCIAL HISTORY: Smoked until 30 years ago. Chewed tobacco, stopped in 2007. Occasional alcohol. FAMILY HISTORY: Noncontributory. ALLERGIES: IV CONTRAST. MEDICATIONS ON ADMISSION: Baclofen, Proscar, simvastatin, fluoxetine, Prilosec, multiple vitamins, and Flonase. REVIEW OF SYSTEMS: No fevers, chills or sweats. His weight has been stable. LABORATORY DATA: White count 4.71, H&H and platelet count are normal. PT, PTT normal. Chemistry profile notable for random glucose of 185. PHYSICAL EXAMINATION: VITAL SIGNS: Temperature 36.6, pulse 86, respiratory rate 17 and O2 saturation 94%. GENERAL: The patient is awake and alert, appearing well rather jocular. He is oriented to person. He is unable to find the word [facility]. He knows that it is May. He has no right/left confusion. There is some difficulty with naming to confrontation. Repetitions and 3-step commands are mildly slow as well. NECK: There are no carotid bruits. HEART: No heart murmurs. Heart has regular rate and rhythm. HEENT: Pupils are equal, round and reactive to light. There are bilateral cataracts. I could not reliably visualize the optic nerves. Brink were full, motility normal, normal facial sensation. The face is symmetric. Speech is nondysarthric. Tongue is midline. Uvula elevates symmetrically. MOTOR: Normal bulk and tone. No resting tremor. Cogwheel rigidity or seizure activity is noted. There is full strength, no drift. Normal rapid alternating movements. Reflexes may be mildly brisker on the right than the left. Toes are downgoing. [id number] and [id number]-[id number] are normal. Gait is normal. IMPRESSION AND PLAN: This patient has known metastatic adenocarcinoma of the esophagus. He has a large single left hemispheric mass, which is the reason for his expressive language dysfunction. He has not had anything clinically that I believed to be a seizure at this point. No studies have proven definitively prophylactic anticonvulsants in the setting of a brain tumor are of significant utility. That having been said, neurosurgery may feel differently, especially if they are planning on biopsying the lesion and I deferred to them in that regard. I agree with Decadron as it is being used. I spoke to the patient about refraining from about not driving presently, this is because of risk of seizure. I did speak to his and his daughter about anticonvulsants and their potential side effects, we spoke of the use of Keppra. I explained to the that I believe that the opinion at [place] was to determine whether or not a biopsy would be performed or whether the patient would be treated empirically with radiation. I doubt, and I explained this to the patient and her , that NS will try to do a subtotal resection due to the tumor's large size and its location proximal to eloquent language. I would be glad to see the patient in followup if necessary. Thank you for this consultation. SHAKIR
--- NOTE | 2017-05-18 12:50 | Discharge Instructions ---
Discharge Instructions Date of Service May 18, 2017. Admission Reason for Admission: Metastatic Esophageal With Brain Mets Discharge Discharge Diagnosis / Problem: left temporal cerebral mass. Metastatic adenocarcinoma of the esophagus Discharge Goals Goal(s): Decrease discomfort, Improve function, Increase independence, Improve disease control Activity Recommendations Activity Limitations: as noted below (activity level will be determined after acute hospital stay) . Current Hospital Diet Patient's current hospital diet: Regular Diet Discharge Diet Recommended Diet: Regular Diet Pending Studies Studies pending at discharge: no Medical Emergencies . Who to Call and When: Medical Emergencies: If at any time you feel your situation is an emergency, please call 911 immediately. . Non-Emergent Contact Non-Emergency issues call your: Primary Care Provider . . "Provider Documentation" section prepared by Butch Reddy. . VTE Core Measure Inpt VTE Proph given/why not?: Treatment not indicated
== END 2017-05-18 13:45 | disposition short-term general hospital (02) | DRG 374 ==
LOC: C.4E 16:19
PROVIDERS: ADMIT Internal Medicine; ATTEND Internal Medicine
DX: C15.5 Malignant neoplasm of lower third of esophagus (principal); G93.6 Cerebral edema; C79.89 Secondary malignant neoplasm of other specified sites; C79.31 Secondary malignant neoplasm of brain; K21.9 Gastro-esophageal reflux disease without esophagitis; F32.9 Major depressive disorder, single episode, unspecified; E78.00 Pure hypercholesterolemia, unspecified; G47.00 Insomnia, unspecified; Z79.899 Other long term (current) drug therapy; Z92.3 Personal history of irradiation

== ENCOUNTER → 2017-05-17 | Outpatient (CLI) | payer BC ==
[~2017-05-17] MED LIST changes: +OPTIRAY 320 IV PRN
--- NOTE | 2017-05-17 15:05 | DIAGNOSTIC IMAGING REPORT ---
HEAD WITHOUT CONTRAST (CT) CLINICAL HISTORY: 81 years-old Male with MEMORY DEF. Memory loss . History of metastatic esophageal cancer. TECHNIQUE: Multiple axial CT images of the head were obtained without contrast. A dose lowering technique was utilized adhering to the principles of ALARA. CT DOSE: 614.27 mGy.cm COMPARISON: PET CT 04/17/2017. FINDINGS: There is a hyperattenuating mass heterogeneous mass containing areas of internal calcification within the left temporal lobe which appears intra-axial measuring 5.2 x 3.5 cm with extensive degree of surrounding vasogenic edema. There is associated sulcal effacement with gyral expansion within this distribution. 2 mm rightward midline shift with subfalcine herniation. There is partial effacement of the left lateral ventricle involving the frontal horn, body, atria and temporal horn. No hydrocephalus. There is mild to moderate atrophy with background chronic microvascular ischemic changes. Vascular calcifications are seen at the level the skull base. Focal area of low-attenuation measuring 11 x 4 mm is seen within the distribution of the left thalamus medial to the mass. No calvarial fracture. Mastoid air cells and middle ear cavities are clear. Soft tissues are unremarkable. Orbits are symmetric. IMPRESSION: 1. Heterogeneous hyperattenuating intra-axial mass containing central calcifications involves the left temporal lobe measuring up to 5.2 cm. Extensive associated vasogenic edema is noted with sulcal effacement and mild rightward midline shift of 2 mm. Primary glial neoplasm or metastatic disease are differential considerations. Neurosurgical consultation and follow-up MRI of the brain with and without contrast recommended. 2. 11 x 4 mm focal area of low-attenuation of the left thalamus medial to the mass may reflect reactive edema or small infarction. 3. Atrophy with chronic microvascular ischemic changes. These findings were discussed with Dr. Ben Vargas on 05/17/2017 at 3:02 PM The above report was generated using voice recognition software. It may contain grammatical, syntax or spelling errors. Electronically signed by: Usama Wallace M.D. 05/17/2017 3:03 PM Dictated Date/Time: 05/17/2017 2:52 PM
== END | disposition home or self-care (01) ==
LOC: C.CTS 13:33
PROVIDERS: ATTEND Internal Medicine
DX: R41.3 Other amnesia (principal); G31.9 Degenerative disease of nervous system, unspecified; I67.82 Cerebral ischemia

== ENCOUNTER → 2017-06-05 | Outpatient (CLI) | payer BC ==
[~2017-06-05] MED LIST changes: -ACET-1256 PO; +CHOL20007 PO; +CIPR-255 PO; +CPR/500 PO; +CPR500 PO; +DUTA0.5C PO; +DXM/4 PO; +FINA5TAB PO; +LORA-741 PO; +LRS10 PO; +MELA10TA2 PO; +METHPOW7 PO; +METR-163 PO; +METR500T PO; +MISCCAP80 PO; +MTR500 PO; +MULT-1027 PO; +ONDA-170 PO; +POLY335019 PO; +PREN1PAK; +PSYL48.59 PO; +SENN-61 PO; +SENNTAB23 PO; +SIME180C15; +TAMS0.4C38 PO; +VANC1CAP3 PO; +VANC5CAP PO
[2017-06-05 09:30] VITALS: BP 148/83; PULSE 78; TEMP 36.9; O2SAT 95
--- NOTE | 2017-06-05 14:10 | Radiation Oncology Follow-Up ---
Radiation Oncology Follow-Up Date of Visit Jun 05, 2017. Reason For Visit Follow-up post surgery Radiation Completion Date has not started RT Diagnosis (1) METASTATIC ESOPHAGEAL CA, BRAIN METS Status: Acute Onset Date: 2007 Location: esophageal carcinoma with brain metastasis Stage: IV Permanent Comment: Adenocarcinoma of the distal esophagus stage IIA Status post neoadjuvant radiation and chemotherapy. Radiation completed 2007 received 4500 cGy Status post resection September 2007 complete response PET/CT 07/04/2011 mildly enlarged lymph nodes right chest and supraclavicular region Status post needle aspiration biopsy showing metastatic adenocarcinoma 2011 Systemic chemotherapy Onset of frequent headaches and finding of brain metastasis Status post craniotomy with resection 05/28/2017, metastatic adenocarcinoma Last Edited By: Juanita Calixto on Jun 05, 2017 14:05 History of Present Illness Mr. Fernandez is a 81-year-old gentleman who presents with a history of recurrent metastatic esophageal cancer. As per the , the patient was recently going to restart chemotherapy due to recurrent disease (medical records from [facility] are unavailable at the time of consultation). The patient did have previous chemotherapy and radiation therapy in the past. More recently, the patient was complaining of issues with memory. Dr. Ben Vargas, his primary care physician, ordered a CT of the head without contrast on 05/17/2017 which revealed: "IMPRESSION: 1. Heterogeneous hyperattenuating intra-axial mass containing central calcifications involves the left temporal lobe measuring up to 5.2 cm. Extensive associated vasogenic edema is noted with sulcal effacement and mild rightward midline shift of 2 mm. Primary glial neoplasm or metastatic disease are differential considerations. Neurosurgical consultation and follow- up MRI of the brain with and without contrast recommended. 2. 11 x 4 mm focal area of low-attenuation of the left thalamus medial to the mass may reflect reactive edema or small infarction. 3. Atrophy with chronic microvascular ischemic changes." Dr. Ben Vargas has sent the patient [facility] for direct admission. During the course of the admission, the patient was seen by Dr. José Telles for medical oncology and by radiation oncology. The general consensus was that the patient had a large solitary hemorrhagic metastasis that require evaluation by a neurosurgeon for potential craniotomy and resection and the patient was transferred to [facility] Interim History The patient was transferred to [facility] where he underwent craniotomy on 05/20/2017. This pathology revealed metastatic adenocarcinoma. Pathology specimen [id number]. Since surgery he has intermittent headache. This can be up to level VII. He uses hydrocodone which does relieve the pain. Usually takes 2 pills per day. His regular gives him one at bedtime to help him rest. He has occasional nausea. There is been no episodes of vomiting. He denies any change in vision. There is no dizziness or lightheadedness. He has noted no focal weakness of the upper or lower extremities. He has noticed a tremor since the surgery. This is just in his hands. Allergies Coded Allergies: Iodinated Diagnostic Agents (Verified Adverse Reaction, Intermediate, HYPOTENSION, 05/17/17) Home Medications Scheduled Cholecalciferol (Vitamin D3), 1,000 INTUNIT PO QAM Fluoxetine (Prozac), 40 MG PO QAM Omeprazole (Omeprazole), 20 MG PO BID Simvastatin (Zocor), 40 MG PO QAM Stool Softener (Stool Softener), 2 TAB PO QAM Tamsulosin Hcl (Flomax), 1 CAP PO DAILY Scheduled PRN Simethicone (Qc Anti-Gas Ultra Strengt), 1 for prn Review of Systems Gastrointestinal: Symptoms: Nausea, Vomiting, Constipation GI Comments: last BMyesterday taking citrcel and stool softner occ n/v, abd discomfort Oral: Symptoms: No Problems Respiratory: Symptoms: Productive Cough Sputum Character: white Other Respiratory: has cold at present Urinary: Symptoms: Hill Catheter Comments: hill putting in prior to surgery,removed diff voiding reinserted Skin: Symptoms: No Problems Other Skin Symptoms: left crainotomy incision healing Physical Exam Vital Signs Date Time Temp Pulse Resp B/P (MAP) Pulse Ox O2 Delivery O2 Flow Rate FiO2 06/05/17 09:30 36.9 78 20 148/83 95 Fatigue: Mild General Appearance: no apparent distress Eyes: normal inspection, EOMI ENT: hearing grossly normal, pharynx normal, + pertinent finding (he has tenderness in the area of the left TMJ and he has trismus with opening his mouth ) Neck: no adenopathy, thyroid normal Respiratory/Chest: lungs clear, no respiratory distress, no accessory muscle use Cardiovascular: regular rate, rhythm, no gallop, no murmur Abdomen: non tender, soft, no organomegaly Neurologic/Psychiatric: frit maker II-XII nml as tested, no motor/sensory deficits, alert, normal mood/affect Skin: warm/dry Pain Management Patient Reports Pain: Yes Pain Location: headache Patient Preferred Pain Scale: 0 - 10 Initial Pain Intensity: 7.0 Pain Management Plan He takes hydrocodone for his headaches. One or 2 pills daily. Laboratory Laboratory Results: not applicable Pathology Pathology Results: were reviewed, and pertinent findings noted in HPI Pathology Comments Reviewed in the interim history. Imaging Imaging Studies: were reviewed, and pertinent findings noted in HPI Assessment & Plan (Attending) Mr. Fernandez is a 81-year-old gentleman who presents with metastatic esophageal cancer to the brain status post resection on 05/19/[address] Boyle ([facility]). The patient was seen by Dr. Mario from neuro- oncology while in the inpatient setting who recommended consideration of postoperative radiation therapy. The patient was discharged from the hospital and we are now seeing him back in follow-up evaluation. The patient's medical oncologist was Dr. Lauri Iverson who is retiring from service and the patient is currently being referred to Dr. Tahir Mercado from [facility]. Based on the large size of the tumor and the operative report from Dr. Boyle, we have recommended consideration of radiation therapy to the postoperative bed. We will obtain an MRI of the brain in order to better visualize if there is any residual disease (patient cannot tolerate IV contrast but can tolerate gadolinium contrast). The patient will then be scheduled for a CT summation for treatment planning. We explained the indications, alternatives, benefits, risks and side effects of external beam radiation therapy to the brain. We explain the most common side effects including but not limited to skin erythema, skin break down, hair loss, radiation necrosis, fatigue, short-term memory loss, decreased neurocognitive performance, cerebral edema, hearing loss, damage to cochlea structures, seizures, loss of sensory and or motor function. We explained the treatment planning process and what to expect before during and after treatment. The patient understands and would be willing to consent to treatment. The patient and family had multiple questions which were answered to their full satisfaction. Thank you for allowing us to participate in the care of this patient. This chart was completed in part utilizing [employer] Voice Recognition software. Attempts were made to minimize the grammatical errors, random word insertions, pronoun errors and incomplete sentences. Any formal questions or concerns about the content, text or information contained within the body of this dictation should be directly addressed to the provider for clarification. Faith Lacy MD Department of Radiation Oncology [facility] Total Time In Follow-Up I spent 20 minutes speaking to the patient and performing examination. I spent 15 minutes reviewing information and completeness note. Total Time (Attending) In Follow-Up I spent 30 minutes examining and counseling the patient. I spent 15 minutes completing this note. [employer] SALESP[employer] Copy To Butch Ribera M.D.; Davi Mario M.D.; Chris Boyle MD
== END | disposition home or self-care (01) ==
LOC: C.ONC 09:13
PROVIDERS: ATTEND Physician Assistant Medical
DX: Z09 Encounter for follow-up examination after completed treatment for conditions other than malignant neoplasm (principal); C15.5 Malignant neoplasm of lower third of esophagus; C79.31 Secondary malignant neoplasm of brain

== ENCOUNTER → 2017-06-21 | Outpatient (CLI) | payer BC ==
[~2017-06-21] MED LIST changes: -AVD5 PO; +GADAVIST IV PRN
--- NOTE | 2017-06-21 11:40 | DIAGNOSTIC IMAGING REPORT ---
BRAIN COMBO CLINICAL HISTORY: 81 years-old Male presenting with MET ESOPHAGEAL TO BRAIN C79.31. TECHNIQUE: Multisequence, multiplanar MR imaging of the brain was performed before and after the administration of intravenous contrast. IV contrast: 6.5 mL of Gadavist. COMPARISON: 05/17/2017. FINDINGS: Postsurgical changes of left pterional craniotomy. Laminar T1 hyperintense, T2 hyperintense extra-axial fluid collection noted subjacent to the craniotomy site measuring 6 mm in thickness, which demonstrates restricted diffusion in the anterior portion (series 4 image 13; series 400 and image 13), most consistent with postsurgical blood products. Minimal subjacent mass effect on the left frontal convexity. Subjacent to the craniotomy site is postsurgical change from evacuation of the large left anterior temporal hemorrhagic mass. Significant interval reduction in intrinsic T1 hyperintensity in this region, suggesting residual blood products. Allowing for the presence of intrinsic T1 hyperintensity, which degrades evaluation of postcontrast imaging, there is nodular enhancement at the resection site (series 8 image 7). This measures approximately 1.7 cm in maximal diameter and is predominantly peripheral, abutting the overlying dura, which also demonstrates pachymeningeal enhancement. Pachymeningeal enhancement extends to the left frontal convexity and may be postsurgical/reactive. Surrounding gliosis in the resection cavity. No new enhancing lesion elsewhere in the brain. Ventricles and sulci normal in size. Periventricular and subcortical white matter T2/FLAIR hyperintensity, nonspecific but likely indicative of chronic small vessel ischemic change. No midline shift. No restricted diffusion to suggest acute ischemia. T2 skull base flow voids preserved. Bone marrow signal intensity within the calvarium within normal limits. IMPRESSION: 1. Postsurgical changes in the left temporal lobe status post resection of the right temporal lobe hemorrhagic mass. Significant nodular enhancement persists in this region concerning for residual disease. Continued imaging follow-up is warranted. Postsurgical small extra-axial hematoma in the surgical bed. Pachymeningeal enhancement could be reactive and does not necessarily early indicate spread of disease. No new lesion. 2. No acute intracranial pathology. Electronically signed by: Jose Manuel Christianson M.D. 06/21/2017 11:38 AM Dictated Date/Time: 06/21/2017 11:22 AM
== END | disposition home or self-care (01) ==
LOC: C.MRI 10:06
PROVIDERS: ATTEND Radiology Radiation Oncology
DX: C79.31 Secondary malignant neoplasm of brain (principal)

== ENCOUNTER → 2017-07-10 | Outpatient (CLI) | payer BC ==
[~2017-07-10] MED LIST changes: -CHOL20007 PO; -CIPR-255 PO; -CPR/500 PO; -CPR500 PO; -DUTA0.5C PO; -DXM/4 PO; -FINA5TAB PO; -GADAVIST IV PRN; -LORA-741 PO; -LRS10 PO; -MELA10TA2 PO; -METHPOW7 PO; -METR-163 PO; -METR500T PO; -MISCCAP80 PO; -MTR500 PO; -MULT-1027 PO; -ONDA-170 PO; -POLY335019 PO; -PREN1PAK; -PSYL48.59 PO; -SENN-61 PO; -SENNTAB23 PO; -VANC1CAP3 PO; -VANC5CAP PO
[2017-07-10 15:26] LABS: BASO % 0.1 %; BASO ABS # 0.01 K/uL (0-0.2); EOS % 1.1 %; EOS ABS # 0.08 K/uL (0-0.5); HEMOGLOBIN 12.9 g/dL (14.0-18.0); IG# 0.04 K/uL (0.00-0.02); LYMPH ABS # 2.79 K/uL (1.2-3.4); MEAN CELL VOLUME 90.9 fL (80-100); MEAN CORPUSCULAR HEMOGLOBIN 30.1 pg (25-34); MEAN CORPUSCULAR HGB CONC 33.1 g/dl (32-36); MEAN PLATELET VOLUME 8.9 fL (7.4-10.4); MONO % 9.3 %; NEUT ABS # 3.93 K/uL (1.4-6.5); PLATELET COUNT 391 K/uL (130-400); RED CELL DISTRIBUTION WIDTH CV 13.7 % (11.5-14.5); RED CELL DISTRIBUTION WIDTH SD 45.2 fL (36.4-46.3); WHITE BLOOD COUNT 7.55 K/uL (4.8-10.8)
[2017-07-10 15:33] LABS: ALBUMIN 3.4 gm/dl (3.4-5.0); ALT/SGPT 26 U/L (12-78); AST/SGOT 20 U/L (15-37); BLOOD UREA NITROGEN 25 mg/dl (7-18); CALCIUM 8.7 mg/dl (8.5-10.1); CARBON DIOXIDE 27 mmol/L (21-32); CREATININE 1.31 mg/dl (0.60-1.40); GLUCOSE 89 mg/dl (70-99); POTASSIUM 3.5 mmol/L (3.5-5.1); SODIUM 140 mmol/L (136-145)
[2017-07-10 15:36] LABS: ALKALINE PHOSPHATASE 106 U/L (45-117); TOTAL PROTEIN 6.8 gm/dl (6.4-8.2)
== END | disposition home or self-care (01) ==
LOC: C.LABSPEC 14:51
PROVIDERS: ATTEND Internal Medicine Hematology & Oncology
DX: C16.0 Malignant neoplasm of cardia (principal)

== ENCOUNTER → 2017-07-17 | Outpatient (CLI) | payer BC ==
[~2017-07-17] MED LIST changes: +CHOL20007 PO; +DXM/4 PO; +FINA5TAB PO; +LORA-741 PO; +LRS10 PO; +MELA10TA2 PO; +ONDA8TAB6 PO
[2017-07-17 13:11] LABS: ALT/SGPT 24 U/L (12-78); AST/SGOT 19 U/L (15-37); BLOOD UREA NITROGEN 18 mg/dl (7-18); CALCIUM 8.1 mg/dl (8.5-10.1); CARBON DIOXIDE 27 mmol/L (21-32); CREATININE 1.28 mg/dl (0.60-1.40); GLUCOSE 171 mg/dl (70-99); POTASSIUM 4.1 mmol/L (3.5-5.1); SODIUM 136 mmol/L (136-145)
[2017-07-17 13:13] LABS: ALKALINE PHOSPHATASE 94 U/L (45-117); TOTAL PROTEIN 6.5 gm/dl (6.4-8.2)
[2017-07-17 13:23] LABS: BASO % 0.2 %; BASO ABS # 0.01 K/uL (0-0.2); EOS % 4.6 %; EOS ABS # 0.21 K/uL (0-0.5); HEMATOCRIT 38.7 % (42-52); HEMOGLOBIN 12.7 g/dL (14.0-18.0); IG# 0.02 K/uL (0.00-0.02); LYMPH % 30.9 %; LYMPH ABS # 1.42 K/uL (1.2-3.4); MEAN CELL VOLUME 90.6 fL (80-100); MEAN CORPUSCULAR HEMOGLOBIN 29.7 pg (25-34); MEAN CORPUSCULAR HGB CONC 32.8 g/dl (32-36); MEAN PLATELET VOLUME 9.4 fL (7.4-10.4); MONO % 2.6 %; MONO ABS # 0.12 K/uL (0.11-0.59); NEUT % 61.3 %; NEUT ABS # 2.82 K/uL (1.4-6.5); PLATELET COUNT 246 K/uL (130-400); RED CELL DISTRIBUTION WIDTH CV 13.4 % (11.5-14.5)
== END | disposition home or self-care (01) ==
LOC: C.LABSPEC 12:21
PROVIDERS: ATTEND Internal Medicine Hematology & Oncology
DX: C16.0 Malignant neoplasm of cardia (principal)

== ENCOUNTER → 2017-07-24 | Outpatient (CLI) | payer BC ==
[~2017-07-24] MED LIST changes: -CHOL1CAP57 PO; +CIPR-255 PO; +DUTA0.5C PO; +METR500T PO; +POLY335019 PO; +PSYL48.59 PO; +SENN-61 PO; +SENNTAB23 PO; -SIME180C15; -STLS PO
[2017-07-24 16:34] LABS: HEMATOCRIT 37.5 % (42-52); HEMOGLOBIN 12.5 g/dL (14.0-18.0); LYMPH % 29.5 %; LYMPH ABS # 0.52 K/uL (1.2-3.4); MEAN CELL VOLUME 90.8 fL (80-100); MEAN CORPUSCULAR HEMOGLOBIN 30.3 pg (25-34); MEAN CORPUSCULAR HGB CONC 33.3 g/dl (32-36); MEAN PLATELET VOLUME 9.9 fL (7.4-10.4); MONO % 1.1 %; MONO ABS # 0.02 K/uL (0.11-0.59); NEUT % 69.4 %; NEUT ABS # 1.22 K/uL (1.4-6.5); PLATELET COUNT 226 K/uL (130-400); RED CELL DISTRIBUTION WIDTH CV 13.5 % (11.5-14.5); RED CELL DISTRIBUTION WIDTH SD 44.1 fL (36.4-46.3); WHITE BLOOD COUNT 1.76 K/uL (4.8-10.8)
== END | disposition home or self-care (01) ==
LOC: C.LAB 16:20
PROVIDERS: ATTEND Internal Medicine Hematology & Oncology
DX: C16.0 Malignant neoplasm of cardia (principal)

== ENCOUNTER 2017-07-27 11:32 | Emergency (ER) | payer BC ==
[~2017-07-27] VITALS: Ht 172.7 cm; Wt 73.6 kg
[~2017-07-27 11:32] MED LIST changes: -CIPR-255 PO; -DUTA0.5C PO; -METR500T PO; -POLY335019 PO; -PSYL48.59 PO; -SENN-61 PO; -SENNTAB23 PO
[2017-07-27 11:37] VITALS: Ht 172.7 cm; Wt 73.6 kg
[2017-07-27] MEDS ORDERED: ASPIRIN 81 MG CHEW PO STA (11:57)
[2017-07-27] MEDS ORDERED: SODIUM CHLORIDE 0.9% 1000ML 1,000 ML IV STA (11:57)
--- NOTE | 2017-07-27 11:59 | EMERGENCY ROOM VISIT NOTE ---
History Report prepared by Mina: Te Moffett Under the Supervision of: Dr. Deejay Vilchis M.D. First contact with patient: 11:47 Chief Complaint: ABDOMINAL PAIN Stated Complaint: ABD PAIN Nursing Triage Summary: pt reports abdominal pain in RLQ X 3 days increased today with tenderness worse today , family PCP sent in for CT DT pt hx diverticulitis denies vomitting History of Present Illness The patient is a 81 year old male who presents to the Emergency Room with complaints of severe, constant, left sided abdominal pain which began earlier today. The patient notes a history of diverticulitis and GERD. He denies shortness of breath, but his states he has been experiencing SOB which worsens with movement or talking. He denies any dark black stools in the past week, blood in his urine, taking blood thinners, loss of consciousness, fevers, nausea, vomiting, and coughing up blood. 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 He notes his brain surgery was performed in [place] on May 19 2017. Source of History: patient Onset: Earlier Today. Position: abdomen (left sided ) Symptom Intensity: severe Timing: constant Associated Symptoms: No LOC, No fevers, No SOB, No nausea, No vomiting Note: Denies: Dark black stools in the past week, blood in his urine, taking blood thinners, and coughing up blood. Review of Systems See HPI for pertinent positives and negatives. A total of ten systems were reviewed and were otherwise negative. Past Medical & Surgical Diverticulitis Dyspnea METASTATIC ESOPHAGEAL CA, BRAIN METS Family History Patient reports no known family medical history. Social History Smoking Status: Never Smoker Drug Use: none Marital Status: Housing Status: lives with family Current/Historical Medications Scheduled Baclofen (Baclofen), 5 MG PO BID Cholecalciferol (Vitamin D3), 2,000 UNITS PO QAM Ciprofloxacin Hcl (Cipro), 500 MG PO BID Dexamethasone (Decadron), 20 MG PO UD Dutasteride (Avodart), 1 CAP PO DAILY Finasteride (Proscar), 5 MG PO QAM Fluoxetine (Prozac), 40 MG PO QAM Lorazepam (Ativan), 1 MG PO HS Melatonin (Melatonin), 10-20 MG PO HS Metronidazole (Flagyl), 500 MG PO TID Omeprazole (Omeprazole), 20 MG PO BID Simvastatin (Zocor), 40 MG PO QAM Tamsulosin Hcl (Flomax), 0.4 MG PO QAM Scheduled PRN Ondansetron Hcl (Zofran), 8 MG PO Q8H PRN for Nausea Polyethylene Glycol 3350 (Miralax), 17 GM PO DAILY PRN for Constipation Psyllium (Metamucil), 1 TBS PO UD PRN for Constipation Senna (Senokot), 1 TAB PO UD PRN for Constipation Sennosides-Docusate Sodium (Stool Softener), 1 TAB PO DAILY PRN for Constipation Allergies Coded Allergies: Iodinated Diagnostic Agents (Verified Adverse Reaction, Intermediate, HYPOTENSION, 07/27/17) Physical Exam Vital Signs Date Time Temp Pulse Resp B/P (MAP) Pulse Ox O2 Delivery O2 Flow Rate FiO2 07/27/17 16:10 82 18 118/70 96 Room Air 07/27/17 14:42 37.4 82 18 131/78 95 Room Air 07/27/17 12:40 89 18 160/85 97 Room Air 07/27/17 11:37 36.9 92 20 147/103 94 Room Air Physical Exam Physical Exam GENERAL: He is oriented to person, place, and time. He appears well-developed and well-nourished. He does not appear distressed. ____ HENT: Exam performed. Head: Normocephalic and atraumatic. Right Ear: External ear normal. No mastoid tenderness. Left Ear: External ear normal. No mastoid tenderness. Mouth/Throat: The oropharynx is clear and moist. No trismus in the jaw. No dental abscesses or uvula swelling. No oropharyngeal exudate or tonsillar abscesses. ____ EYES: Conjunctivae and EOM are normal. Pupils are equal, round, and reactive to light. Right eye exhibits no discharge. Left eye exhibits no discharge. No scleral icterus. ____ NECK: Normal range of motion. Neck supple. No JVD present. No spinous process tenderness present. No carotid bruit present. No rigidity. No tracheal deviation and normal range of motion present. No Brudzinski's sign and no Kernig 's sign noted. ____ CV: Normal rate, regular rhythm, normal heart sounds and intact distal pulses. There is no peripheral edema. Palpable radial pulses bue. ____ PULM/CHEST: Effort normal and breath sounds normal. No respiratory distress. No stridor. He has no wheezes. He has no rales. Chest Wall: He exhibits no tenderness. ____ ABD: The abdomen is soft. Bowel sounds are normal. He has no distension. No mass is present. Tenderness to palpation of LLQ. There is no rebound, no guarding, no Croft's sign and no tenderness at McBurney's point. Rovsig negative MUSC/SKEL: Normal range of motion. There is no peripheral edema, tenderness or deformity. LYMPH: No cervical adenopathy. ____ NEURO: He is alert and oriented to person, place, and time. He has normal strength. No cranial nerve deficit or sensory deficit. Coordination and gait normal. GCS eye subscore is 4. GCS verbal subscore is 5. GCS motor subscore is 6. cerbellar tests wnl. ____ SKIN: Skin is warm and dry. He is not diaphoretic. ____ PSYCH: He has a normal mood and affect. His behavior is normal. Judgment and thought content normal. ____ Medical Decision & Procedures ER Provider Diagnostic Interpretation: Radiology results as stated below per my review and radiologist interpretation: ABD/PELVIS ORAL CONT ONLY CLINICAL HISTORY: 81 years-old Male presenting with llq pain . TECHNIQUE: Multidetector CT of the abdomen and pelvis was performed without the use of intravenous contrast. IV contrast: None. A dose lowering technique was used consistent with the principles of ALARA (as low as reasonably achievable). COMPARISON: 06/18/2014 and PET/CT from 04/17/2017. CT DOSE (mGy.cm): The estimated cumulative dose is 567.19 mGycm. FINDINGS: Medical Laboratory Technician topogram: Unremarkable. Lung bases: Bilateral gynecomastia. Extensive dependent consolidation and peribronchovascular consolidation in the right lower lobe with associated volume loss. Less extensive dependent changes in the left lower lobe. Solid round pulmonary nodule measuring 11 mm in the right middle lobe. This has increased in size since prior PET/CT on 04/17/2017. Multiple additional smaller pulmonary nodules marked on the images. Aortic valve and coronary artery calcification. Normal heart size. The intraventricular blood pool is less dense than the adjacent myocardium consistent with anemia. Subendocardial fat deposition noted in the left ventricle, nonspecific. No pericardial or pleural effusion. Liver: Normal morphology. Well-defined hypodensity in the right hepatic lobe indeterminate but likely hepatic cysts. Few additional smaller hypodensities. One hypodensity more inferiorly in the right hepatic lobe is more indistinct and indeterminate (series 3 image 153). Biliary: No intrahepatic or extrahepatic biliary ductal dilatation. Physiologic distention of the gallbladder. Pancreas: Herniation of a portion of the pancreatic body and tail through the aortic hiatus. Spleen: Normal noncontrast appearance. Adrenal glands: Normal noncontrast appearance. Kidneys and ureters: Multiple parapelvic cysts bilaterally. Dominant exophytic 6.3 cm cyst in the right kidney, incompletely characterized. Additional smaller exophytic cyst suspected at the lower pole the right kidney. Punctate nonobstructing right renal calculus (series 3 image 217). No hydronephrosis. Bladder: Normal. Pelvic organs: Prostate enlargement likely secondary to benign prostatic hyperplasia. Bowel: Diverticulosis of the distal descending and proximal sigmoid colon. Associated wall thickening and pericolonic inflammatory change in the distal descending colon. No adjacent fluid collection or rogers perforation. Associated fascial thickening evidence of peritoneal reaction. No bowel obstruction. Postsurgical changes of gastric pull-through. Peritoneal cavity: No free fluid or intraperitoneal gas. Lymph nodes: No gross lymphadenopathy allowing for noncontrast technique. Vasculature: Atherosclerosis of the normal caliber abdominal aorta. Abdominal wall: Postsurgical changes of the supraumbilical midline abdominal wall. Small fat-containing ventral midline hernia (series 3 image 221). Intramuscular lipoma noted in the right abdominal wall musculature. Musculoskeletal: Degenerative changes of the spine. IMPRESSION: 1. Findings consistent with acute uncomplicated diverticulitis at the junction of the descending and sigmoid colon. No abscess or CT evidence of rogers perforation. 2. Extensive peribronchovascular and dependent consolidation in the right lower lobe with volume loss. This could represent extensive atelectasis although chronic aspiration or extensive scarring could appear similarly. This is unchanged from prior. 3. Interval increase in size of the now 11 mm solid pulmonary nodule in the right middle lobe. It is difficult to assess if the multiple additional smaller solid pulmonary nodules are new given respiratory artifact on prior PET/CT. Findings suspicious for pulmonary metastatic disease in the setting of esophageal cancer. 4. 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 The report will be called/faxed according to standard departmental protocol. Electronically signed by: Jose Manuel Christianson M.D. 07/27/2017 3:00 PM Dictated Date/Time: 07/27/2017 2:46 PM CHEST 2 VIEWS ROUTINE CLINICAL HISTORY: 81 years-old Male presenting with sob epigastric pain. TECHNIQUE: PA and lateral views of the chest were obtained. COMPARISON: 01/30/2017. FINDINGS: Atherosclerosis of the aortic arch. Cardiac silhouette normal in size. Minimal nodular opacities in the left lung base. Apparent nodular opacity at the right lung base. No other focal infiltrate. No large effusion or pneumothorax. Osseous structures normal. Upper abdomen normal. IMPRESSION: 1. Minimal nodular opacities at the left lung base, possibly atelectasis or scarring though new from prior. 2. Apparent nodular opacity at the right lung base may represent a prominent nipple shadow. If there is clinical concern, repeat PA radiograph with nipple markers. Electronically signed by: Jose Manuel Christianson M.D. 07/27/2017 12:40 PM Dictated Date/Time: 07/27/2017 12:39 PM Laboratory Results 07/27/17 12:00 Red Blood Count 4.06, Mean Corpuscular Volume 90.1, Mean Corpuscular Hemoglobin 28.8, Mean Corpuscular Hemoglobin Concent 32.0, Mean Platelet Volume 9.6, Neutrophils (%) (Auto) 52.5, Lymphocytes (%) (Auto) 41.4, Monocytes (%) (Auto) 5.7, Eosinophils (%) (Auto) 0.4, Basophils (%) (Auto) 0.0, Neutrophils # (Auto) 1.19, Lymphocytes # (Auto) 0.94, Monocytes # (Auto) 0.13, Eosinophils # (Auto) 0.01, Basophils # (Auto) 0.00 07/27/17 12:00 Test 07/27/17 12:00 07/27/17 12:15 07/27/17 12:35 07/27/17 15:22 White Blood Count 2.27 K/uL (4.8-10.8) Red Blood Count 4.06 M/uL (4.7-6.1) Hemoglobin 11.7 g/dL (14.0-18.0) Hematocrit 36.6 % (42-52) Mean Corpuscular Volume 90.1 fL (80-100) Mean Corpuscular Hemoglobin 28.8 pg (25-34) Mean Corpuscular Hemoglobin Concent 32.0 g/dl (32-36) Platelet Count 276 K/uL (130-400) Mean Platelet Volume 9.6 fL (7.4-10.4) Neutrophils (%) (Auto) 52.5 % Lymphocytes (%) (Auto) 41.4 % Monocytes (%) (Auto) 5.7 % Eosinophils (%) (Auto) 0.4 % Basophils (%) (Auto) 0.0 % Neutrophils # (Auto) 1.19 K/uL (1.4-6.5) Lymphocytes # (Auto) 0.94 K/uL (1.2-3.4) Monocytes # (Auto) 0.13 K/uL (0.11-0.59) Eosinophils # (Auto) 0.01 K/uL (0-0.5) Basophils # (Auto) 0.00 K/uL (0-0.2) RDW Standard Deviation 43.6 fL (36.4-46.3) RDW Coefficient of Variation 13.6 % (11.5-14.5) Immature Granulocyte % (Auto) 0.0 % Immature Granulocyte # (Auto) 0.00 K/uL (0.00-0.02) Prothrombin Time 9.7 SECONDS (9.0-12.0) Prothromb Time International Ratio 0.9 (0.9-1.1) Activated Partial Thromboplast Time 24.8 SECONDS (21.0-31.0) Partial Thromboplastin Ratio 1.0 Anion Gap 5.0 mmol/L (3-11) Est Creatinine Clear Calc Drug Dose 45.6 ml/min Estimated GFR () 61.9 Estimated GFR (Non- 53.4 BUN/Creatinine Ratio 20.2 (10-20) Calcium Level 8.1 mg/dl (8.5-10.1) Total Bilirubin 0.5 mg/dl (0.2-1) Aspartate Amino Transf (AST/SGOT) 19 U/L (15-37) Alanine Aminotransferase (ALT/SGPT) 27 U/L (12-78) Alkaline Phosphatase 91 U/L (45-117) Total Protein 6.5 gm/dl (6.4-8.2) Albumin 3.0 gm/dl (3.4-5.0) Globulin 3.5 gm/dl (2.5-4.0) Albumin/Globulin Ratio 0.9 (0.9-2) Lipase 232 U/L (73-393) Lactic Acid Level 1.0 mmol/L (0.4-2.0) Urine Color DK YELLOW Urine Appearance CLEAR (CLEAR) Urine pH 5.0 (4.5-7.5) Urine Specific [place] 1.029 (1.000-1.030) Urine Protein NEG (NEG) Urine Glucose (UA) NEG (NEG) Urine Ketones NEG (NEG) Urine Occult Blood TRACE (NEG) Urine Nitrite NEG (NEG) Urine Bilirubin NEG (NEG) Urine Urobilinogen NEG (NEG) Urine Leukocyte Esterase NEG (NEG) Urine WBC (Auto) 1-5 /hpf (0-5) Urine RBC (Auto) 5-10 /hpf (0-4) Urine Hyaline Casts (Auto) 1-5 /lpf (0-5) Urine Epithelial Cells (Auto) 5-10 /lpf (0-5) Urine Bacteria (Auto) NEG (NEG) Troponin I < 0.015 ng/ml (0-0.045) Laboratory results reviewed by me Medications Administered Medications (Trade) Dose Ordered Sig/Helder Route Start Time Stop Time Status Last Admin Dose Admin Sodium Chloride 1,000 ml @ 125 mls/hr Q8H STAT IV 07/27/17 11:57 07/27/17 17:20 DC 07/27/17 12:16 125 MLS/HR Aspirin (Aspirin Chew) 324 mg NOW STAT PO 07/27/17 11:57 07/27/17 12:01 DC 07/27/17 12:13 324 MG Morphine Sulfate (MoRPHine SULFATE INJ) 4 mg STK-MED ONCE .ROUTE 07/27/17 13:16 07/27/17 13:17 DC 07/27/17 13:17 4 MG Ciprofloxacin (Cipro Tab) 500 mg NOW STAT PO 07/27/17 15:31 07/27/17 15:33 DC 07/27/17 15:39 500 MG Metronidazole (Flagyl Tab) 500 mg NOW STAT PO 07/27/17 15:31 07/27/17 15:33 DC 07/27/17 15:39 500 MG ECG Indication: abdominal pain Rate (beats per minute): 86 Rhythm: sinus rhythm Findings: other (TN, QRS, QTc is wnl. No ST depression or elevation. LVH) Change: Patient's electrocardiogram was interpreted by me. ED Course 1152: The patient was evaluated in room C01. A complete history and physical exam was performed. 1157: Ordered Aspirin 324mg PO and Sodium Chloride 1000 ml @ 125 mls/hr IV. 1316: Ordered Morphine Sulfate 4mg 1402: I reevaluated the patient. The patient's vitals are stable. His CT was negative for diverticulitis with no abscess. Two sets of troponin tests were negative. White count decreased, most likely due to the chemotherapy. will discharge with antibiotics and he will follow up with PCP. First dose of antibiotics given in the emergency department. Patient tolerated p.o. in the emergency department. DISCHARGE - Plan of care discussed with patient and questions answered. The patient was given both verbal and printed discharge instructions. The patient verbalized understanding and ability to comply. The patient is to seek outpatient follow up as noted in the discharge instructions. The patient verbalized understanding and ability to comply. The patient is discharged in stable condition. The patient was instructed to return for worsening symptoms. 1531: Ordered metronidazole 500mg PO and Ciprofloxacin 500mg PO. Medical Decision I reevaluated the patient. The patient's vitals are stable. His CT was negative for diverticulitis with no abscess. Two sets of troponin tests were negative. White count decreased, most likely due to the chemotherapy. will discharge with antibiotics and he will follow up with PCP. First dose of antibiotics given in the emergency department. Patient tolerated p.o. in the emergency department. DISCHARGE - Plan of care discussed with patient and questions answered. The patient was given both verbal and printed discharge instructions. The patient verbalized understanding and ability to comply. The patient is to seek outpatient follow up as noted in the discharge instructions. The patient verbalized understanding and ability to comply. The patient is discharged in stable condition. The patient was instructed to return for worsening symptoms. Medication Reconcilliation Current Medication List: was personally reviewed by me Blood Pressure Screening Patient's blood pressure: Normal blood pressure Impression Primary Impression: Diverticulitis Additional Impression: Dyspnea Scribe Attestation The scribe's documentation has been prepared under my direction and personally reviewed by me in its entirety. I confirm that the note above accurately reflects all work, treatment, procedures, and medical decision making performed by me. The chart was completed utilizing [employer] Speech voice recognition software. Grammatical errors, random word insertions, pronoun errors, and incomplete sentences are an occasional consequence of this system due to software limitations, ambient noise, and hardware issues. Any formal questions or concerns about the content, text, or information contained within the body of this dictation should be directly addressed to the physician for clarification. Departure Information Dispostion Home / Self-Care Prescriptions Metronidazole (FLAGYL) 500 Mg Tab 500 MG PO TID for 7 Days, #21 TAB Prov: Deejay Vilchis M.D. 07/27/17 Ciprofloxacin Hcl (CIPRO) 500 Mg Tab 500 MG PO BID, #14 TAB Prov: Deejay Vilchis M.D. 07/27/17 Referrals Butch Ribera M.D. Forms Call Back Authorization, HOME CARE DOCUMENTATION FORM, IMPORTANT VISIT INFORMATION Patient Instructions Diverticulitis [facility], [facility] Additional Instructions Return to the emergency department if you develop fever greater than 100.4, vomiting, constipation, blood in your urine, blood in her stools, chest pain or your symptoms worsen Problem Qualifiers Additional Impression: Dyspnea Dyspnea type: unspecified Qualified Codes: R06.00 - Dyspnea, unspecified
[2017-07-27 12:23] LABS: EOS % 0.4 %; EOS ABS # 0.01 K/uL (0-0.5); HEMATOCRIT 36.6 % (42-52); HEMOGLOBIN 11.7 g/dL (14.0-18.0); LYMPH % 41.4 %; LYMPH ABS # 0.94 K/uL (1.2-3.4); MEAN CELL VOLUME 90.1 fL (80-100); MEAN CORPUSCULAR HEMOGLOBIN 28.8 pg (25-34); MEAN PLATELET VOLUME 9.6 fL (7.4-10.4); MONO % 5.7 %; MONO ABS # 0.13 K/uL (0.11-0.59); NEUT % 52.5 %; NEUT ABS # 1.19 K/uL (1.4-6.5); PLATELET COUNT 276 K/uL (130-400); RED CELL DISTRIBUTION WIDTH CV 13.6 % (11.5-14.5); RED CELL DISTRIBUTION WIDTH SD 43.6 fL (36.4-46.3); WHITE BLOOD COUNT 2.27 K/uL (4.8-10.8)
[2017-07-27 12:34] LABS: INR 0.9 (0.9-1.1); PTT PATIENT 24.8 SECONDS (21.0-31.0)
[2017-07-27 12:40] LABS: ALT/SGPT 27 U/L (12-78); AST/SGOT 19 U/L (15-37); BLOOD UREA NITROGEN 26 mg/dl (7-18); CALCIUM 8.1 mg/dl (8.5-10.1); CARBON DIOXIDE 29 mmol/L (21-32); CREATININE 1.27 mg/dl (0.60-1.40); GLUCOSE 97 mg/dl (70-99); LIPASE 232 U/L (73-393); POTASSIUM 3.9 mmol/L (3.5-5.1); SODIUM 139 mmol/L (136-145)
--- NOTE | 2017-07-27 12:42 | DIAGNOSTIC IMAGING REPORT ---
CHEST 2 VIEWS ROUTINE CLINICAL HISTORY: 81 years-old Male presenting with sob epigastric pain. TECHNIQUE: PA and lateral views of the chest were obtained. COMPARISON: 01/30/2017. FINDINGS: Atherosclerosis of the aortic arch. Cardiac silhouette normal in size. Minimal nodular opacities in the left lung base. Apparent nodular opacity at the right lung base. No other focal infiltrate. No large effusion or pneumothorax. Osseous structures normal. Upper abdomen normal. IMPRESSION: 1. Minimal nodular opacities at the left lung base, possibly atelectasis or scarring though new from prior. 2. Apparent nodular opacity at the right lung base may represent a prominent nipple shadow. If there is clinical concern, repeat PA radiograph with nipple markers. Electronically signed by: Jose Manuel Christianson M.D. 07/27/2017 12:40 PM Dictated Date/Time: 07/27/2017 12:39 PM
[2017-07-27 12:45] LABS: ALKALINE PHOSPHATASE 91 U/L (45-117); TOTAL PROTEIN 6.5 gm/dl (6.4-8.2)
[2017-07-27] MEDS ORDERED: NURSING VERBAL MED ORDER ONE (13:15)
[2017-07-27] MEDS ORDERED: MoRPHine SULFATE 4 MG/ML 1 ML CARP\\VIAL ONE (13:16)
[2017-07-27] MEDS ORDERED: SENN-61 PO (14:16)
[2017-07-27] MEDS ORDERED: SENNTAB23 PO (14:16)
[2017-07-27] MEDS ORDERED: DUTA0.5C PO (14:16)
[2017-07-27] MEDS ORDERED: POLY335019 PO (14:16)
[2017-07-27] MEDS ORDERED: PSYL48.59 PO (14:16)
[2017-07-27 14:42] VITALS: TEMP 37.4
--- NOTE | 2017-07-27 15:02 | DIAGNOSTIC IMAGING REPORT ---
ABD/PELVIS ORAL CONT ONLY CLINICAL HISTORY: 81 years-old Male presenting with llq pain . TECHNIQUE: Multidetector CT of the abdomen and pelvis was performed without the use of intravenous contrast. IV contrast: None. A dose lowering technique was used consistent with the principles of ALARA (as low as reasonably achievable). COMPARISON: 06/18/2014 and PET/CT from 04/17/2017. CT DOSE (mGy.cm): The estimated cumulative dose is 567.19 mGycm. FINDINGS: Box Car Bracer topogram: Unremarkable. Lung bases: Bilateral gynecomastia. Extensive dependent consolidation and peribronchovascular consolidation in the right lower lobe with associated volume loss. Less extensive dependent changes in the left lower lobe. Solid round pulmonary nodule measuring 11 mm in the right middle lobe. This has increased in size since prior PET/CT on 04/17/2017. Multiple additional smaller pulmonary nodules marked on the images. Aortic valve and coronary artery calcification. Normal heart size. The intraventricular blood pool is less dense than the adjacent myocardium consistent with anemia. Subendocardial fat deposition noted in the left ventricle, nonspecific. No pericardial or pleural effusion. Liver: Normal morphology. Well-defined hypodensity in the right hepatic lobe indeterminate but likely hepatic cysts. Few additional smaller hypodensities. One hypodensity more inferiorly in the right hepatic lobe is more indistinct and indeterminate (series 3 image 153). Biliary: No intrahepatic or extrahepatic biliary ductal dilatation. Physiologic distention of the gallbladder. Pancreas: Herniation of a portion of the pancreatic body and tail through the aortic hiatus. Spleen: Normal noncontrast appearance. Adrenal glands: Normal noncontrast appearance. Kidneys and ureters: Multiple parapelvic cysts bilaterally. Dominant exophytic 6.3 cm cyst in the right kidney, incompletely characterized. Additional smaller exophytic cyst suspected at the lower pole the right kidney. Punctate nonobstructing right renal calculus (series 3 image 217). No hydronephrosis. Bladder: Normal. Pelvic organs: Prostate enlargement likely secondary to benign prostatic hyperplasia. Bowel: Diverticulosis of the distal descending and proximal sigmoid colon. Associated wall thickening and pericolonic inflammatory change in the distal descending colon. No adjacent fluid collection or rogers perforation. Associated fascial thickening evidence of peritoneal reaction. No bowel obstruction. Postsurgical changes of gastric pull-through. Peritoneal cavity: No free fluid or intraperitoneal gas. Lymph nodes: No gross lymphadenopathy allowing for noncontrast technique. Vasculature: Atherosclerosis of the normal caliber abdominal aorta. Abdominal wall: Postsurgical changes of the supraumbilical midline abdominal wall. Small fat-containing ventral midline hernia (series 3 image 221). Intramuscular lipoma noted in the right abdominal wall musculature. Musculoskeletal: Degenerative changes of the spine. IMPRESSION: 1. Findings consistent with acute uncomplicated diverticulitis at the junction of the descending and sigmoid colon. No abscess or CT evidence of rogers perforation. 2. Extensive peribronchovascular and dependent consolidation in the right lower lobe with volume loss. This could represent extensive atelectasis although chronic aspiration or extensive scarring could appear similarly. This is unchanged from prior. 3. Interval increase in size of the now 11 mm solid pulmonary nodule in the right middle lobe. It is difficult to assess if the multiple additional smaller solid pulmonary nodules are new given respiratory artifact on prior PET/CT. Findings suspicious for pulmonary metastatic disease in the setting of esophageal cancer. 4. 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 The report will be called/faxed according to standard departmental protocol. Electronically signed by: Jose Manuel Christianson M.D. 07/27/2017 3:00 PM Dictated Date/Time: 07/27/2017 2:46 PM
[2017-07-27] MEDS ORDERED: CIPROFLOXACIN 500 MG TAB PO STA (15:31)
[2017-07-27] MEDS ORDERED: METRONIDAZOLE 250 MG TAB PO STA (15:31)
[2017-07-27 16:10] VITALS: BP 118/70; PULSE 82; O2SAT 96
[2017-07-27] MEDS ORDERED: METR500T PO (16:15)
[2017-07-27] MEDS ORDERED: CIPR-255 PO (16:15)
== END 2017-07-27 16:40 | disposition home or self-care (01) ==
LOC: C.EDB 11:33 → C.EDC 16:40
DX: K57.92 Diverticulitis of intestine, part unspecified, without perforation or abscess without bleeding (principal); R06.00 Dyspnea, unspecified; K21.9 Gastro-esophageal reflux disease without esophagitis; Z87.19 Personal history of other diseases of the digestive system; Z79.899 Other long term (current) drug therapy; Z91.041 Radiographic dye allergy status

== ENCOUNTER → 2017-08-05 | Day surgery (SDC) | payer BC ==
[2017-07-23 11:03] VITALS: Ht 171.5 cm; Wt 72.7 kg
[~2017-08-05] VITALS: Ht 171.5 cm; Wt 72.7 kg
[~2017-08-05] MED LIST changes: +CIPR-255 PO; +DUTA0.5C PO; +LIDOCAINE HCL 2% 2 ML VIAL (20MG/ML) ONE; +POLY335019 PO; +PROPOFOL IV EMULSION 10 MG/ML 20 ML VIAL IV ONE; +PSYL48.59 PO; +SENN-61 PO; +SENNTAB23 PO; +SODIUM CHLORIDE 0.9% 500ML 500 ML IV ONE
[2017-08-05 14:57] VITALS: TEMP 37
--- NOTE | 2017-08-05 15:38 | Endo History and Physical ---
History & Physical Date of Service: Aug 05, 2017. Chief Complaint: h/o esophageal CA, dysphagia Referring Physician: Dr. Mercado History of Present Illness 81 yo CM who presents for EGD secondary to dysphagia and history of esophageal cancer. Past Medical History Reflux, High Cholesterol, Depression Past Surgical History Hx Cardiac Surgery: No Hx Internal Defibrillator: No Hx Pacemaker: No Hx Abdominal Surgery: No Hx of Implantable Prosthesis: No Hx Post-Op Nausea and Vomiting: No Hx Cancer Surgery: Yes (esophageal cancer surgery; CRANIOTOMY) Hx Thoracic Surgery: No Hx Orthopedic: Yes (carpel tunnel, trigger finger) Hx Urinary Tract Surgery: No Family History None Social History Smoking Status: Never Smoker Hx Substance Use: No Hx Alcohol Use: Yes (Occasionally) Allergies Coded Allergies: Iodinated Diagnostic Agents (Verified Adverse Reaction, Intermediate, HYPOTENSION, 08/05/17) Current Medications Reported Home Medications Medications Dose Route/Sig Max Daily Dose Days Date Category Dose Instructions Cipro (Ciprofloxacin Hcl) 500 Mg Tab 500 Mg PO BID 07/27/17 Rx Metamucil (Psyllium) 48.57 % Pow 1 Tbs PO UD PRN 07/27/17 Reported Miralax (Polyethylene Glycol 3350) 1 Pow Pow 17 Gm PO DAILY PRN 07/27/17 Reported Senokot (Senna) 8.6 Mg Tab 1 Tab PO UD PRN 07/27/17 Reported Stool Softener (Sennosides-Docusate Sodium) 1 Tab Tab 1 Tab PO DAILY PRN 07/27/17 Reported Avodart (Dutasteride) 0.5 Mg Cap 1 Cap PO DAILY 30 07/27/17 Reported Decadron (Dexamethasone) 4 Mg Tab 20 Mg PO UD 07/23/17 Reported TO TAKE 20MG 12 HOURS BEFORE CHEMO AND ALSO ANOTHER 20MG 4 HOURS PRIOR TO CHEMO. Zofran (Ondansetron HCl) 8 Mg Tab 8 Mg PO Q8H PRN 07/23/17 Reported Ativan (Lorazepam) 0.5 Mg Tab 1 Mg PO HS 07/23/17 Reported Proscar (Finasteride) 5 Mg Tab 5 Mg PO QAM 07/23/17 Reported Baclofen 10 Mg Tab 5 Mg PO BID 07/23/17 Reported Melatonin 10 Mg Tab 10-20 Mg PO HS 07/23/17 Reported Vitamin D3 (Cholecalciferol) 2,000 Unit Tab 2,000 Units PO QAM 07/23/17 Reported Flomax (Tamsulosin Hcl) 0.4 Mg Cap 0.4 Mg PO QAM 06/05/17 Reported Omeprazole 20 Mg Tab 20 Mg PO BID 11/24/14 Reported Zocor (Simvastatin) 40 Mg Tab 40 Mg PO QAM 07/21/07 Reported Prozac (Fluoxetine HCl) 40 Mg Cap 40 Mg PO QAM 07/21/07 Reported Vital Signs Weight (Kilograms): 72.73 Height (Feet): 5 Height (Inches): 7.5 Date Time Temp Pulse Resp B/P (MAP) Pulse Ox O2 Delivery O2 Flow Rate FiO2 08/05/17 14:59 158/103 (121) 08/05/17 14:57 37 71 18 163/116 (132) 98 Room Air Physical Exam General Appearance: WD/WN, no apparent distress Respiratory/Chest: Auscultation: breath sounds normal Cardiovascular: Heart Auscultation: RRR Abdomen: Bowel Sounds: normal Inspection & Palpation: soft, non-distended, no tenderness, guarding & rebound Assessment and Plan Assessment: 81 yo CM who presents for EGD secondary to dysphagia and history of esophageal cancer. Plan: Proceed with EGD.
--- NOTE | 2017-08-05 16:10 | Discharge Instructions ---
Endoscopy Patient Instructions Date / Procedure(s) Performed Aug 05, 2017. EGD Allergy Information Coded Allergies: Iodinated Diagnostic Agents (Verified Adverse Reaction, Intermediate, HYPOTENSION, 08/05/17) Discharge Date / Findings Aug 05, 2017. Esophageal stricture s/p dilation Medication Instructions OK to resume all medications today as prescribed Reported Home Medications Medications Dose Route/Sig Max Daily Dose Days Date Category Dose Instructions Cipro (Ciprofloxacin Hcl) 500 Mg Tab 500 Mg PO BID 07/27/17 Rx Metamucil (Psyllium) 48.57 % Pow 1 Tbs PO UD PRN 07/27/17 Reported Miralax (Polyethylene Glycol 3350) 1 Pow Pow 17 Gm PO DAILY PRN 07/27/17 Reported Senokot (Senna) 8.6 Mg Tab 1 Tab PO UD PRN 07/27/17 Reported Stool Softener (Sennosides-Docusate Sodium) 1 Tab Tab 1 Tab PO DAILY PRN 07/27/17 Reported Avodart (Dutasteride) 0.5 Mg Cap 1 Cap PO DAILY 30 07/27/17 Reported Decadron (Dexamethasone) 4 Mg Tab 20 Mg PO UD 07/23/17 Reported TO TAKE 20MG 12 HOURS BEFORE CHEMO AND ALSO ANOTHER 20MG 4 HOURS PRIOR TO CHEMO. Zofran (Ondansetron HCl) 8 Mg Tab 8 Mg PO Q8H PRN 07/23/17 Reported Ativan (Lorazepam) 0.5 Mg Tab 1 Mg PO HS 07/23/17 Reported Proscar (Finasteride) 5 Mg Tab 5 Mg PO QAM 07/23/17 Reported Baclofen 10 Mg Tab 5 Mg PO BID 07/23/17 Reported Melatonin 10 Mg Tab 10-20 Mg PO HS 07/23/17 Reported Vitamin D3 (Cholecalciferol) 2,000 Unit Tab 2,000 Units PO QAM 07/23/17 Reported Flomax (Tamsulosin Hcl) 0.4 Mg Cap 0.4 Mg PO QAM 06/05/17 Reported Omeprazole 20 Mg Tab 20 Mg PO BID 11/24/14 Reported Zocor (Simvastatin) 40 Mg Tab 40 Mg PO QAM 07/21/07 Reported Prozac (Fluoxetine HCl) 40 Mg Cap 40 Mg PO QAM 07/21/07 Reported Provider Instructions Activity Restrictions - No exercising or heavy lifting for 24 hours. - Do not drink alcohol the day of the procedure. - Do not drive a car or operate machinery until the day after the procedure. - Do not make any important decisions or sign important papers in 24 hours after the procedure. Following Day: - Return to full activity which may include returning to work/school. Diet Start your diet with liquids and light foods (jello, soup, juice, toast). Then eat your usual diet if not nauseated. Treatment For Common After Affects For mild abdominal pain, bloating, or excessive gas: - Rest - Eat lightly - Lie on right side Follow-Up Information Follow-up with Dr. Mercado as scheduled Anesthesia Information What You Should Know You have had a procedure that required some medicine to reduce anxiety and discomfort. This treatment is called moderate sedation. After receiving the treatment, you may be sleepy, but you will be able to breathe on your own. The effects of the treatment may last for several hours. Follow these instructions along with Activity/Diet recommendations noted above: * Do NOT do anything where dizziness or clumsiness would be dangerous. * Rest quietly at home today, then you can be up and about tomorrow. * Have a responsible person stay with you the rest of today. * You may have had an I.V. today. If so, you may take the dressing off later today. Recommendations Call your doctor if: * Trouble breathing * Continuous vomiting for more than 24 hours * Temperature above 101 degrees * Severe abdominal pain or bloating * Pain not relieved by pain medicine ordered * There is increased drainage or redness from any incision * A large amount of rectal bleeding greater than 2-3 tablespoons. (If you had a polyp/s removed or have hemorrhoids, a small amount of blood - from the rectum is to be expected.) * You have any unanswered questions or concerns. IN THE EVENT OF A SERIOUS EMERGENCY, GO TO THE NEAREST EMERGENCY ROOM Your discharge instructions were prepared by provider Tc France. Patient Instructions Signature Page Lauri Fernandez Patient (or Guardian) Signature/Date: I have read and understand the instructions given to me by my caregivers. Caregiver/RN/Doctor Signature/Date: The above-named patient and/or guardian has received patient instructions on this date. + Original Patient Signature Page (only) stays with chart. Please make copy for patient.
--- NOTE | 2017-08-05 16:17 | GI REPORT ---
Procedure Date: 08/05/2017 3:48 PM Procedure: Upper GI endoscopy Indications: Dysphagia Medicines: Monitored Anesthesia Care Complications: No immediate complications. Estimated Blood Loss: Estimated blood loss: none. Procedure: Pre-Anesthesia Assessment: - Prior to the procedure, a History and Physical was performed, and patient medications and allergies were reviewed. The patient's tolerance of previous anesthesia was also reviewed. The risks and benefits of the procedure and the sedation options and risks were discussed with the patient. All questions were answered, and informed consent was obtained. Prior Anticoagulants: The patient has taken no previous anticoagulant or antiplatelet agents. ASA Grade Assessment: III - A patient with severe systemic disease. After reviewing the risks and benefits, the patient was deemed in satisfactory condition to undergo the procedure. After obtaining informed consent, the endoscope was passed under direct vision. Throughout the procedure, the patient's blood pressure, pulse, and oxygen saturations were monitored continuously. The scope was introduced through the mouth, and advanced to the second part of duodenum. The upper GI endoscopy was accomplished without difficulty. The patient tolerated the procedure well. Findings: One benign-appearing, intrinsic stenosis was found. The EG junction was at 18 cm from the incisors, secondary to prior gastric pull-up. This stenosis was moderately severe and measured 1.2 cm (inner diameter) x less than one cm (in length). The stenosis was traversed. A TTS dilator was passed through the scope. Dilation with a 15-16.5-18 mm balloon dilator was performed to 18 mm. The dilation site was examined and showed moderate improvement in luminal narrowing. The stomach was normal. The examined duodenum was normal. Impression: - Benign-appearing esophageal stenosis. Dilated. - Normal stomach. - Normal examined duodenum. - No specimens collected. Recommendation: - Resume previous diet. - Continue present medications. - Repeat upper endoscopy PRN for retreatment. - Return to primary care physician as previously scheduled. Tc France, DO 08/05/2017 4:17:13 PM This report has been signed electronically. Note Initiated On: 08/05/2017 3:48 PM I attest to the content of the Intraoperative Record and orders documented therein, exceptions below
--- NOTE | 2017-08-05 16:23 | Anesthesiology Progress Note ---
Anesthesia Post Op Note Date & Time Aug 05, 2017 at 16:23 Vital Signs Pain Intensity: 0 Vital Signs Past 12 Hours Date Time Temp Pulse Resp B/P (MAP) Pulse Ox O2 Delivery O2 Flow Rate FiO2 08/05/17 16:09 78 16 119/75 (90) 98 Room Air 08/05/17 14:59 158/103 (121) 08/05/17 14:57 37 71 18 163/116 (132) 98 Room Air Notes Mental Status: alert / awake / arousable, participated in evaluation Pt Amnestic to Procedure: Yes Nausea / Vomiting: adequately controlled Pain: adequately controlled Airway Patency, RR, SpO2: stable & adequate BP & HR: stable & adequate Hydration State: stable & adequate Anesthetic Complications: no major complications apparent
[2017-08-05 16:40] VITALS: BP 145/88; PULSE 71; O2SAT 96
== END | disposition home or self-care (01) ==
LOC: C.GI 14:27
PROVIDERS: ATTEND Internal Medicine
DX: R13.10 Dysphagia, unspecified (principal); C15.9 Malignant neoplasm of esophagus, unspecified; K21.9 Gastro-esophageal reflux disease without esophagitis; E78.5 Hyperlipidemia, unspecified; M19.90 Unspecified osteoarthritis, unspecified site; G62.9 Polyneuropathy, unspecified; Z91.041 Radiographic dye allergy status

== ENCOUNTER → 2017-08-08 | Outpatient (CLI) | payer BC ==
[~2017-08-08] MED LIST changes: -LIDOCAINE HCL 2% 2 ML VIAL (20MG/ML) ONE; -PROPOFOL IV EMULSION 10 MG/ML 20 ML VIAL IV ONE; -SODIUM CHLORIDE 0.9% 500ML 500 ML IV ONE
[2017-08-08 13:09] LABS: BASO % 0.7 %; BASO ABS # 0.03 K/uL (0-0.2); EOS % 1.7 %; EOS ABS # 0.07 K/uL (0-0.5); HEMATOCRIT 34.7 % (42-52); HEMOGLOBIN 11.6 g/dL (14.0-18.0); IG# 0.02 K/uL (0.00-0.02); LYMPH ABS # 1.61 K/uL (1.2-3.4); MEAN CELL VOLUME 90.4 fL (80-100); MEAN CORPUSCULAR HEMOGLOBIN 30.2 pg (25-34); MEAN CORPUSCULAR HGB CONC 33.4 g/dl (32-36); MEAN PLATELET VOLUME 8.8 fL (7.4-10.4); MONO ABS # 0.66 K/uL (0.11-0.59); NEUT % 42.1 %; NEUT ABS # 1.74 K/uL (1.4-6.5); PLATELET COUNT 378 K/uL (130-400); RED CELL DISTRIBUTION WIDTH CV 15.4 % (11.5-14.5); RED CELL DISTRIBUTION WIDTH SD 49.8 fL (36.4-46.3); WHITE BLOOD COUNT 4.13 K/uL (4.8-10.8)
[2017-08-08 13:31] LABS: ALBUMIN 2.7 gm/dl (3.4-5.0); ALT/SGPT 20 U/L (12-78); BLOOD UREA NITROGEN 14 mg/dl (7-18); CALCIUM 8.4 mg/dl (8.5-10.1); CARBON DIOXIDE 28 mmol/L (21-32); CREATININE 1.21 mg/dl (0.60-1.40); GLUCOSE 97 mg/dl (70-99); POTASSIUM 3.6 mmol/L (3.5-5.1); SODIUM 140 mmol/L (136-145)
[2017-08-08 13:33] LABS: ALKALINE PHOSPHATASE 72 U/L (45-117); AST/SGOT 23 U/L (15-37); TOTAL PROTEIN 5.9 gm/dl (6.4-8.2)
== END | disposition home or self-care (01) ==
LOC: C.LABSPEC 12:29
PROVIDERS: ATTEND Internal Medicine Hematology & Oncology
DX: C16.0 Malignant neoplasm of cardia (principal)

== ENCOUNTER → 2017-08-09 | Outpatient (CLI) | payer BC ==
[2017-08-09 09:45] VITALS: BP 150/80; PULSE 67; TEMP 36.3; O2SAT 96
--- NOTE | 2017-08-09 11:27 | Radiation Oncology Follow-Up ---
Radiation Oncology Follow-Up Date of Visit Aug 09, 2017. 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 Radiation completed 2007 received 4500 cGy Status post resection September 2007 complete response PET/CT 07/04/2011 mildly enlarged lymph nodes right chest and supraclavicular region Status post needle aspiration biopsy showing metastatic adenocarcinoma 2011 Systemic chemotherapy Onset of frequent headaches and finding of brain metastasis Status post craniotomy with resection 05/28/2017, metastatic adenocarcinoma Status post completion of radiation therapy 07/09/2017. He received 3000 cGy utilizing SBRT Last Edited By: Juanita Calixto on Jul 15, 2017 16:00 History of Present Illness Mr. Fernandez presents with a history of recurrent metastatic esophageal cancer. As per the , the patient was recently going to restart chemotherapy due to recurrent disease (medical records from [facility] are unavailable at the time of consultation). The patient did have previous chemotherapy and radiation therapy in the past. More recently, the patient was complaining of issues with memory. Dr. Ben Vargas , his primary care physician, ordered a CT of the head without contrast on 05/17/2017 which revealed: "IMPRESSION: 1. Heterogeneous hyperattenuating intraaxial mass containing central calcifications involves the left temporal lobe measuring up to 5.2 cm. Extensive associated vasogenic edema is noted with sulcal effacement and mild rightward midline shift of 2 mm. Primary glial neoplasm or metastatic disease are differential considerations. Neurosurgical consultation and follow-up MRI of the brain with and without contrast recommended. 2. 11 x 4 mm focal area of low-attenuation of the left thalamus medial to the mass may reflect reactive edema or small infarction. 3. Atrophy with chronic microvascular ischemic changes." Dr. Ben Vargas has sent the patient [facility] for direct admission. We are now being asked to evaluate the patient for consideration of radiation therapy. Currently, the patient is stable overall. The patient denies significant headaches however he does admit to issues with short-term memory. He does have some fatigue. He completed radiation therapy with SBRT 07/09/2017. He received 3000 cGy in 5 fractions. Interim History Over the past month he does continue to have some intermittent headaches. These occur 3 times per week. The discomfort is up to a level 6. He has no associated nausea. No photosensitivity. He will take 1 hydrocodone and the pain is relieved. The intensity has remained the same since over the past month. He is currently scheduled to follow-up with the neuro-oncologist in August. He will be having a MRI on that day in [place]. He was having some issues with dysphasia and underwent an upper GI endoscopy and dilatation. He is doing better since that procedure. Allergies Coded Allergies: Iodinated Diagnostic Agents (Verified Adverse Reaction, Intermediate, HYPOTENSION, 08/05/17) Home Medications Scheduled Baclofen (Baclofen), 5 MG PO BID Cholecalciferol (Vitamin D3), 2,000 UNITS PO QAM Dexamethasone (Decadron), 20 MG PO UD Dutasteride (Avodart), 1 CAP PO DAILY Finasteride (Proscar), 5 MG PO QAM Fluoxetine (Prozac), 40 MG PO QAM Lorazepam (Ativan), 1 MG PO HS Melatonin (Melatonin), 10-20 MG PO HS Omeprazole (Omeprazole), 20 MG PO BID Simvastatin (Zocor), 40 MG PO QAM Tamsulosin Hcl (Flomax), 0.4 MG PO QAM Scheduled PRN Ondansetron Hcl (Zofran), 8 MG PO Q8H PRN for Nausea Polyethylene Glycol 3350 (Miralax), 17 GM PO DAILY PRN for Constipation Psyllium (Metamucil), 1 TBS PO UD PRN for Constipation Senna (Senokot), 1 TAB PO UD PRN for Constipation Sennosides-Docusate Sodium (Stool Softener), 1 TAB PO DAILY PRN for Constipation Review of Systems Gastrointestinal: GI Comments: occ diarrhea in the AM- dark in color Oral: Symptoms: No Problems Respiratory: Symptoms: WNL Urinary: Symptoms: WNL Skin: Symptoms: No Problems Additional Notes: He completed a distress management report and answer "no" to all questions. Physical Exam Vital Signs Date Time Temp Pulse Resp B/P (MAP) Pulse Ox O2 Delivery O2 Flow Rate FiO2 08/09/17 09:45 36.3 67 16 150/80 96 ECOG Performance Status: 0 General Appearance: no apparent distress Eyes: normal inspection, PERRL, EOMI ENT: normal ENT inspection, hearing grossly normal Respiratory/Chest: lungs clear, no respiratory distress, no accessory muscle use Cardiovascular: regular rate, rhythm, no gallop, no murmur Extremities: no pedal edema Neurologic/Psychiatric: synthetic filament spinner II-XII nml as tested, no motor/sensory deficits, alert, normal mood/affect Skin: warm/dry Pain Management Patient Reports Pain: Yes Side: Bilateral Pain Location: Head Patient Preferred Pain Scale: 0 - 10 Initial Pain Intensity: 6.0 Pain Management Plan Headaches occur 3 times per week. They are relieved by taking hydrocodone. He did not require any pain management through our office. Laboratory Laboratory Results: not applicable Pathology Pathology Results: not applicable Imaging Imaging Studies: not applicable Assessment & Plan Plan: Continue regular follow-up with his primary care physician and neural oncologist. He also follows with medical oncology. He continues on chemotherapy. He was seen today by Dr. Lacy. He will see the neuro- oncologist and have a recheck MRI in August. We asked him to return to our office in 6 months. We will obtain an MRI prior to that visit. He may call our office if he has any questions or concerns in the interim. Pain management through the neuro-oncologist or primary care physician. Assessment & Plan (Attending) I agree with note created by Juanita Calixto PA-C. I reviewed the patient's chart and information with her. I have examined and evaluated the patient. I reviewed relevant clinical information and answered the patient's and/or family' s questions. CAMERA MECHANIC Total Time In Follow-Up I spent 20 minutes speaking to the patient and performing examination. I spent 20 minutes reviewing information, preparing the survivorship document, and completing this note. AK Total Time (Attending) In Follow-Up I spent 15 minutes examining and counseling the patient. CAMERA MECHANIC
== END | disposition home or self-care (01) ==
LOC: C.ONC 09:25
PROVIDERS: ATTEND Physician Assistant Medical
DX: Z08 Encounter for follow-up examination after completed treatment for malignant neoplasm (principal); Z92.3 Personal history of irradiation; Z85.01 Personal history of malignant neoplasm of esophagus; Z85.841 Personal history of malignant neoplasm of brain

== ENCOUNTER → 2017-08-15 | Outpatient (CLI) | payer BC ==
[~2017-08-15] MED LIST changes: -CIPR-255 PO
[2017-08-15 14:51] LABS: BASO % 0.8 %; BASO ABS # 0.03 K/uL (0-0.2); EOS % 2.1 %; EOS ABS # 0.08 K/uL (0-0.5); HEMATOCRIT 35.7 % (42-52); HEMOGLOBIN 11.5 g/dL (14.0-18.0); IG# 0.01 K/uL (0.00-0.02); LYMPH ABS # 1.36 K/uL (1.2-3.4); MEAN CELL VOLUME 91.1 fL (80-100); MEAN CORPUSCULAR HEMOGLOBIN 29.3 pg (25-34); MEAN CORPUSCULAR HGB CONC 32.2 g/dl (32-36); MEAN PLATELET VOLUME 9.7 fL (7.4-10.4); MONO ABS # 0.19 K/uL (0.11-0.59); NEUT % 55.8 %; NEUT ABS # 2.11 K/uL (1.4-6.5); PLATELET COUNT 268 K/uL (130-400); RED CELL DISTRIBUTION WIDTH CV 14.8 % (11.5-14.5); WHITE BLOOD COUNT 3.78 K/uL (4.8-10.8)
[2017-08-15 15:01] LABS: BLOOD UREA NITROGEN 16 mg/dl (7-18); CALCIUM 8.5 mg/dl (8.5-10.1); CARBON DIOXIDE 29 mmol/L (21-32); GLUCOSE 90 mg/dl (70-99); POTASSIUM 4.5 mmol/L (3.5-5.1); SODIUM 139 mmol/L (136-145)
[2017-08-15 15:07] LABS: ALKALINE PHOSPHATASE 66 U/L (45-117); ALT/SGPT 20 U/L (12-78); AST/SGOT 18 U/L (15-37); TOTAL PROTEIN 6.2 gm/dl (6.4-8.2)
== END | disposition home or self-care (01) ==
LOC: C.LABSPEC 14:43
PROVIDERS: ATTEND Internal Medicine Hematology & Oncology
DX: C16.0 Malignant neoplasm of cardia (principal)

== ENCOUNTER → 2017-08-22 | Outpatient (CLI) | payer BC ==
[2017-08-22 15:58] LABS: ALBUMIN 3.1 gm/dl (3.4-5.0); ALT/SGPT 23 U/L (12-78); AST/SGOT 17 U/L (15-37); BLOOD UREA NITROGEN 18 mg/dl (7-18); CALCIUM 8.4 mg/dl (8.5-10.1); CARBON DIOXIDE 25 mmol/L (21-32); CREATININE 1.18 mg/dl (0.60-1.40); GLUCOSE 89 mg/dl (70-99); POTASSIUM 4.1 mmol/L (3.5-5.1); SODIUM 139 mmol/L (136-145)
[2017-08-22 16:00] LABS: ALKALINE PHOSPHATASE 77 U/L (45-117); TOTAL PROTEIN 6.3 gm/dl (6.4-8.2)
[2017-08-22 16:29] LABS: HEMATOCRIT 37.1 % (42-52); HEMOGLOBIN 11.8 g/dL (14.0-18.0); MEAN CELL VOLUME 90.9 fL (80-100); MEAN CORPUSCULAR HEMOGLOBIN 28.9 pg (25-34); MEAN CORPUSCULAR HGB CONC 31.8 g/dl (32-36); MEAN PLATELET VOLUME 10.2 fL (7.4-10.4); PLATELET COUNT 221 K/uL (130-400); RED CELL DISTRIBUTION WIDTH CV 15.3 % (11.5-14.5); RED CELL DISTRIBUTION WIDTH SD 49.7 fL (36.4-46.3); WHITE BLOOD COUNT 1.96 K/uL (4.8-10.8)
== END | disposition home or self-care (01) ==
LOC: C.LABSPEC 14:34
PROVIDERS: ATTEND Internal Medicine
DX: C16.0 Malignant neoplasm of cardia (principal)

== ENCOUNTER → 2017-09-04 | Outpatient (CLI) | payer BC ==
[~2017-09-04] MED LIST changes: +ONDA-170 PO; -ONDA8TAB6 PO
[2017-09-04 18:46] LABS: BASO % 0.4 %; BASO ABS # 0.03 K/uL (0-0.2); EOS % 1.1 %; EOS ABS # 0.09 K/uL (0-0.5); HEMATOCRIT 37.8 % (42-52); HEMOGLOBIN 12.4 g/dL (14.0-18.0); IG# 0.05 K/uL (0.00-0.02); LYMPH % 26.3 %; MEAN CELL VOLUME 93.1 fL (80-100); MEAN CORPUSCULAR HEMOGLOBIN 30.5 pg (25-34); MEAN CORPUSCULAR HGB CONC 32.8 g/dl (32-36); MEAN PLATELET VOLUME 9.3 fL (7.4-10.4); MONO % 10.6 %; MONO ABS # 0.85 K/uL (0.11-0.59); NEUT ABS # 4.87 K/uL (1.4-6.5); PLATELET COUNT 265 K/uL (130-400); RED CELL DISTRIBUTION WIDTH CV 16.2 % (11.5-14.5); RED CELL DISTRIBUTION WIDTH SD 54.5 fL (36.4-46.3); WHITE BLOOD COUNT 7.99 K/uL (4.8-10.8)
[2017-09-04 19:16] LABS: ALBUMIN 3.1 gm/dl (3.4-5.0); ALKALINE PHOSPHATASE 79 U/L (45-117); ALT/SGPT 25 U/L (12-78); AST/SGOT 21 U/L (15-37); BLOOD UREA NITROGEN 19 mg/dl (7-18); CALCIUM 8.3 mg/dl (8.5-10.1); CARBON DIOXIDE 27 mmol/L (21-32); CREATININE 1.32 mg/dl (0.60-1.40); POTASSIUM 4.1 mmol/L (3.5-5.1); SODIUM 140 mmol/L (136-145); TOTAL PROTEIN 6.4 gm/dl (6.4-8.2)
[2017-09-04 19:30] LABS: GLUCOSE 53 mg/dl (70-99)
== END | disposition home or self-care (01) ==
LOC: C.LABSPEC 17:15
PROVIDERS: ATTEND Internal Medicine Hematology & Oncology
DX: C16.0 Malignant neoplasm of cardia (principal)

== ENCOUNTER → 2017-09-11 | Outpatient (CLI) | payer BC ==
[2017-09-11 19:31] LABS: BASO % 0.3 %; BASO ABS # 0.02 K/uL (0-0.2); EOS % 2.8 %; EOS ABS # 0.16 K/uL (0-0.5); HEMATOCRIT 34.9 % (42-52); HEMOGLOBIN 11.7 g/dL (14.0-18.0); IG# 0.02 K/uL (0.00-0.02); MEAN CELL VOLUME 90.4 fL (80-100); MEAN CORPUSCULAR HEMOGLOBIN 30.3 pg (25-34); MEAN CORPUSCULAR HGB CONC 33.5 g/dl (32-36); MEAN PLATELET VOLUME 9.7 fL (7.4-10.4); MONO % 3.1 %; MONO ABS # 0.18 K/uL (0.11-0.59); NEUT % 62.5 %; NEUT ABS # 3.63 K/uL (1.4-6.5); PLATELET COUNT 213 K/uL (130-400); RED CELL DISTRIBUTION WIDTH CV 16.2 % (11.5-14.5); RED CELL DISTRIBUTION WIDTH SD 52.2 fL (36.4-46.3); WHITE BLOOD COUNT 5.81 K/uL (4.8-10.8)
[2017-09-11 19:49] LABS: ALT/SGPT 20 U/L (12-78); AST/SGOT 18 U/L (15-37); BLOOD UREA NITROGEN 22 mg/dl (7-18); CALCIUM 8.2 mg/dl (8.5-10.1); CARBON DIOXIDE 29 mmol/L (21-32); CREATININE 1.15 mg/dl (0.60-1.40); GLUCOSE 79 mg/dl (70-99); POTASSIUM 4.5 mmol/L (3.5-5.1); SODIUM 138 mmol/L (136-145)
[2017-09-11 19:51] LABS: ALKALINE PHOSPHATASE 72 U/L (45-117)
== END | disposition home or self-care (01) ==
LOC: C.LABSPEC 17:40
PROVIDERS: ATTEND Internal Medicine Hematology & Oncology
DX: C16.0 Malignant neoplasm of cardia (principal)

== ENCOUNTER → 2017-09-18 | Outpatient (CLI) | payer BC ==
[2017-09-18 17:16] LABS: ALBUMIN 3.2 gm/dl (3.4-5.0); AST/SGOT 20 U/L (15-37); BLOOD UREA NITROGEN 20 mg/dl (7-18); CALCIUM 8.6 mg/dl (8.5-10.1); CARBON DIOXIDE 27 mmol/L (21-32); CREATININE 1.39 mg/dl (0.60-1.40); GLUCOSE 177 mg/dl (70-99); SODIUM 138 mmol/L (136-145)
[2017-09-18 17:19] LABS: ALKALINE PHOSPHATASE 86 U/L (45-117); ALT/SGPT 29 U/L (12-78); TOTAL PROTEIN 6.5 gm/dl (6.4-8.2)
[2017-09-18 18:57] LABS: HEMATOCRIT 39.7 % (42-52); HEMOGLOBIN 12.8 g/dL (14.0-18.0); MEAN CELL VOLUME 92.3 fL (80-100); MEAN CORPUSCULAR HEMOGLOBIN 29.8 pg (25-34); MEAN CORPUSCULAR HGB CONC 32.2 g/dl (32-36); MEAN PLATELET VOLUME 9.2 fL (7.4-10.4); PLATELET COUNT 295 K/uL (130-400); RED CELL DISTRIBUTION WIDTH CV 17.1 % (11.5-14.5); RED CELL DISTRIBUTION WIDTH SD 56.4 fL (36.4-46.3); WHITE BLOOD COUNT 3.88 K/uL (4.8-10.8)
[2017-09-18 18:59] LABS: BASO % 0.5 %; BASO ABS # 0.02 K/uL (0-0.2); EOS % 5.9 %; EOS ABS # 0.23 K/uL (0-0.5); IG# 0.01 K/uL (0.00-0.02); LYMPH % 62.1 %; LYMPH ABS # 2.41 K/uL (1.2-3.4); MONO % 11.1 %; MONO ABS # 0.43 K/uL (0.11-0.59); NEUT % 20.1 %; NEUT ABS # 0.78 K/uL (1.4-6.5)
== END | disposition home or self-care (01) ==
LOC: C.LABSPEC 16:45
PROVIDERS: ATTEND Internal Medicine Hematology & Oncology
DX: C16.0 Malignant neoplasm of cardia (principal)

== ENCOUNTER → 2017-09-25 | Outpatient (CLI) | payer BC ==
[2017-09-25 17:09] LABS: BASO % 0.4 %; BASO ABS # 0.02 K/uL (0-0.2); EOS ABS # 0.05 K/uL (0-0.5); HEMOGLOBIN 11.8 g/dL (14.0-18.0); IG# 0.05 K/uL (0.00-0.02); LYMPH % 44.7 %; LYMPH ABS # 2.18 K/uL (1.2-3.4); MEAN CELL VOLUME 91.4 fL (80-100); MEAN CORPUSCULAR HEMOGLOBIN 29.9 pg (25-34); MEAN CORPUSCULAR HGB CONC 32.8 g/dl (32-36); MEAN PLATELET VOLUME 9.7 fL (7.4-10.4); MONO % 3.3 %; MONO ABS # 0.16 K/uL (0.11-0.59); NEUT % 49.6 %; NEUT ABS # 2.42 K/uL (1.4-6.5); PLATELET COUNT 292 K/uL (130-400); RED CELL DISTRIBUTION WIDTH CV 16.3 % (11.5-14.5); RED CELL DISTRIBUTION WIDTH SD 54.1 fL (36.4-46.3); WHITE BLOOD COUNT 4.88 K/uL (4.8-10.8)
[2017-09-25 17:14] LABS: ALBUMIN 3.1 gm/dl (3.4-5.0); ALT/SGPT 29 U/L (12-78); BLOOD UREA NITROGEN 24 mg/dl (7-18); CALCIUM 8.2 mg/dl (8.5-10.1); CARBON DIOXIDE 26 mmol/L (21-32); CREATININE 1.28 mg/dl (0.60-1.40); GLUCOSE 86 mg/dl (70-99); SODIUM 138 mmol/L (136-145)
[2017-09-25 17:17] LABS: ALKALINE PHOSPHATASE 76 U/L (45-117); AST/SGOT 23 U/L (15-37)
== END | disposition home or self-care (01) ==
LOC: C.LABSPEC 16:31
PROVIDERS: ATTEND Internal Medicine Hematology & Oncology
DX: C16.0 Malignant neoplasm of cardia (principal)

== ENCOUNTER → 2017-10-01 | Outpatient (CLI) | payer BC ==
--- NOTE | 2017-10-01 16:29 | DIAGNOSTIC IMAGING REPORT ---
CT SCAN OF THE ABDOMEN AND PELVIS WITHOUT CONTRAST CLINICAL HISTORY: GASTROESOPHAGEAL CA COMPARISON STUDY: July 27, 2017 TECHNIQUE: CT scan of the abdomen and pelvis was performed from the lung bases to the proximal femurs. Images are reviewed in the axial, sagittal, and coronal planes. IV contrast was not administered for this examination. A dose lowering technique was utilized adhering to the principles of ALARA. CT DOSE: FINDINGS: Lower chest: There are basilar atelectatic changes. There is interval decrease in the size of an 8 mm right middle lobe pulmonary nodule. There are right lower lobe consolidative changes within the area of presumed rounded atelectasis at the right lung base. There are postsurgical changes of a gastric pull-through. Liver: There is a 15 mm hypodensity within the right hepatic lobe, unchanged from the prior study. Gallbladder: Unremarkable. Spleen: Normal in size and attenuation. Pancreas: Unremarkable. Adrenal glands: Unremarkable. Kidneys: There is a 6.5 cm right renal cyst. No renal calculi are visualized. There are a few small parapelvic cysts. No ureteral or bladder calculi are visualized. Bowel: There are no transition zones indicate bowel obstruction. There is colonic diverticulosis. There is been near complete interval resolution of the previously identified peridiverticular inflammatory change.. There is a left upper quadrant jejunal intussusception. This is not resulting in obstructive changes in the baby transient. A 3 cm polypoid lead point cannot be excluded. Peritoneum: There is no intraperitoneal free air or abdominal ascites. Vasculature: The abdominal aorta is normal in course and caliber. Adenopathy: None. Pelvic viscera: The prostate remains significantly enlarged measuring 54 mm Skeletal structures: No destructive osseous lesions are seen. IMPRESSION: 1. Interval decrease in the size of the 8 mm right middle lobe pulmonary nodule 2. Colonic diverticulosis with near complete resolution of the previously identified peridiverticular inflammatory change 3. Post surgical changes of a gastric pull-through 4. Stable hepatic hypodensity, likely representing a cyst. 5. Jejunal intussusception near the level of the ligament of Treitz. This is likely transient. There is no current evidence of obstruction. A 3 cm polypoid lesion point cannot be excluded with certainty Electronically signed by: Marbin Neri M.D. 10/01/2017 4:27 PM Dictated Date/Time: 10/01/2017 4:15 PM
--- NOTE | 2017-10-01 17:07 | DIAGNOSTIC IMAGING REPORT ---
(CHEST) THORAX WITHOUT CT DOSE: 657.77 mGycm CLINICAL HISTORY: 82 years-old Male with GASTROESOPHAGEAL CA, IODINATED CONTRAST ALLERGY. Follow-up study in a patient with history of metastatic esophageal cancer. TECHNIQUE: Multiaxial CT images of the chest were performed without contrast. A dose lowering technique was utilized adhering to the principles of ALARA. COMPARISON: Chest CT 06/28/2014, PET CT 04/17/2017. FINDINGS: No dominant thyroid nodule identified. 6 mm calcification of the right thyroid lobe. Evaluation for adenopathy is limited without the use of IV contrast. The previously described FDG avid lymph nodes of the lower cervical and superior mediastinal distribution are not well seen on today's study. 5 mm right supraclavicular lymph node on image 18 series 4 previously measured 7 mm. No new or progressively enlarged adenopathy about the chest identified. Heart is normal in size without pericardial effusion. Mural fibrofatty changes involving the left ventricular apex compatible with prior myocardial infarction. Coronary arterial disease. Moderate atherosclerosis of the thoracic aorta without aneurysm. Pleural calcifications of the right hemithorax with unchanged pleural thickening again noted. 2.2 x 1.3 cm area of pleural-based nodularity of the right lung base is unchanged from image 219 series 4. This did not demonstrate hypermetabolic activity on comparison PET CT. 8 mm solid nodule of the right middle lobe seen on image 174 series 4 is unchanged. 3 mm solid nodule of the right upper lobe, image 105 series 4 is also stable. Minimal linear nodularity of the right upper lobe on image 147 series 4 suggests area of probable scarring. 2 mm solid nodule of the right lower lobe is noted on image 194 series 4, not definitively seen on comparison. 2 mm nodule of the right upper lobe as seen on image 114 series 4. Bibasilar groundglass opacities suggest atelectasis with areas of scarring. Calcified granuloma of the apical posterior segment left upper lobe. Pleural calcifications are seen adjacent to the lingula. Central airways are patent. Postoperative changes of the esophagus with gastric pull-through. No acute process of the imaged upper abdomen. Pancreas is again seen herniating through the diaphragmatic hiatus Low attenuating lesion of the posterior right hepatic lobe is unchanged suggesting hepatic cyst. Soft tissues are unremarkable. There are no suspicious lytic or blastic bony lesions identified. IMPRESSION: 1. No acute intrathoracic abnormality identified. 2. No new or progressive adenopathy. Slightly decreased size of a right supraclavicular lymph node which demonstrated hypermetabolic activity on comparison PET CT. 3. Unchanged 8 mm solid pulmonary nodule of the right middle lobe with scattered additional 2 mm nodules seen bilaterally. 4. Esophageal resection with gastric pull-through. Portion of the pancreas is again seen herniating through the diaphragmatic hiatus. Electronically signed by: Usama Wallace M.D. 10/01/2017 5:06 PM Dictated Date/Time: 10/01/2017 4:51 PM
== END | disposition home or self-care (01) ==
LOC: C.CTS 15:27
PROVIDERS: ATTEND Nurse Practitioner Family
DX: C16.0 Malignant neoplasm of cardia (principal)

== ENCOUNTER → 2017-10-09 | Outpatient (CLI) | payer BC ==
[2017-10-09 18:02] LABS: BLOOD UREA NITROGEN 19 mg/dl (7-18); CREATININE 1.36 mg/dl (0.60-1.40); GLUCOSE 163 mg/dl (70-99)
[2017-10-09 18:03] LABS: ALBUMIN 3.2 gm/dl (3.4-5.0); ALT/SGPT 21 U/L (12-78); CALCIUM 8.5 mg/dl (8.5-10.1); CARBON DIOXIDE 24 mmol/L (21-32); SODIUM 139 mmol/L (136-145)
[2017-10-09 18:08] LABS: ALKALINE PHOSPHATASE 73 U/L (45-117); AST/SGOT 21 U/L (15-37); TOTAL PROTEIN 6.1 gm/dl (6.4-8.2)
[2017-10-09 18:48] LABS: HEMATOCRIT 35.9 % (42-52); HEMOGLOBIN 11.5 g/dL (14.0-18.0); MEAN CELL VOLUME 93.2 fL (80-100); MEAN CORPUSCULAR HEMOGLOBIN 29.9 pg (25-34); MEAN PLATELET VOLUME 9.2 fL (7.4-10.4); NUCLEATED RED BLOOD CELL ABS 0.02 K/uL (0-0); PLATELET COUNT 338 K/uL (130-400); RED CELL DISTRIBUTION WIDTH SD 60.7 fL (36.4-46.3); WHITE BLOOD COUNT 3.57 K/uL (4.8-10.8)
[2017-10-09 19:05] LABS: BASO % 0.3 %; BASO ABS # 0.01 K/uL (0-0.2); EOS % 1.4 %; EOS ABS # 0.05 K/uL (0-0.5); IG# 0.01 K/uL (0.00-0.02); LYMPH ABS # 2.75 K/uL (1.2-3.4); MONO % 14.3 %; MONO ABS # 0.51 K/uL (0.11-0.59); NEUT % 6.7 %; NEUT ABS # 0.24 K/uL (1.4-6.5)
== END | disposition home or self-care (01) ==
LOC: C.LABSPEC 17:04
PROVIDERS: ATTEND Internal Medicine Hematology & Oncology
DX: C16.0 Malignant neoplasm of cardia (principal)

== ENCOUNTER → 2017-10-16 | Outpatient (CLI) | payer BC ==
[2017-10-16 16:50] LABS: BASO % 0.2 %; BASO ABS # 0.01 K/uL (0-0.2); EOS % 1.4 %; EOS ABS # 0.07 K/uL (0-0.5); HEMATOCRIT 36.9 % (42-52); IG# 0.03 K/uL (0.00-0.02); LYMPH % 45.4 %; MEAN CELL VOLUME 91.8 fL (80-100); MEAN CORPUSCULAR HEMOGLOBIN 29.9 pg (25-34); MEAN CORPUSCULAR HGB CONC 32.5 g/dl (32-36); MEAN PLATELET VOLUME 9.3 fL (7.4-10.4); MONO % 12.4 %; MONO ABS # 0.63 K/uL (0.11-0.59); NEUT ABS # 2.03 K/uL (1.4-6.5); PLATELET COUNT 307 K/uL (130-400); RED CELL DISTRIBUTION WIDTH CV 17.4 % (11.5-14.5); RED CELL DISTRIBUTION WIDTH SD 57.9 fL (36.4-46.3); WHITE BLOOD COUNT 5.07 K/uL (4.8-10.8)
[2017-10-16 17:18] LABS: ALBUMIN 3.2 gm/dl (3.4-5.0); ALT/SGPT 23 U/L (12-78); AST/SGOT 23 U/L (15-37); BLOOD UREA NITROGEN 21 mg/dl (7-18); CALCIUM 8.4 mg/dl (8.5-10.1); CARBON DIOXIDE 24 mmol/L (21-32); CREATININE 1.13 mg/dl (0.60-1.40); GLUCOSE 85 mg/dl (70-99); POTASSIUM 4.2 mmol/L (3.5-5.1); SODIUM 141 mmol/L (136-145)
[2017-10-16 17:21] LABS: ALKALINE PHOSPHATASE 75 U/L (45-117); TOTAL PROTEIN 6.1 gm/dl (6.4-8.2)
== END | disposition home or self-care (01) ==
LOC: C.LABSPEC 16:24
PROVIDERS: ATTEND Internal Medicine Hematology & Oncology
DX: C16.0 Malignant neoplasm of cardia (principal)

== ENCOUNTER → 2017-10-23 | Outpatient (CLI) | payer BC ==
[2017-10-23 18:43] LABS: BASO % 0.5 %; BASO ABS # 0.02 K/uL (0-0.2); EOS % 1.8 %; EOS ABS # 0.07 K/uL (0-0.5); HEMATOCRIT 35.7 % (42-52); HEMOGLOBIN 11.6 g/dL (14.0-18.0); IG# 0.01 K/uL (0.00-0.02); LYMPH % 47.1 %; LYMPH ABS # 1.81 K/uL (1.2-3.4); MEAN CELL VOLUME 91.1 fL (80-100); MEAN CORPUSCULAR HEMOGLOBIN 29.6 pg (25-34); MEAN CORPUSCULAR HGB CONC 32.5 g/dl (32-36); MEAN PLATELET VOLUME 9.8 fL (7.4-10.4); MONO % 3.6 %; MONO ABS # 0.14 K/uL (0.11-0.59); NEUT % 46.7 %; NEUT ABS # 1.79 K/uL (1.4-6.5); PLATELET COUNT 200 K/uL (130-400); RED CELL DISTRIBUTION WIDTH CV 17.2 % (11.5-14.5); WHITE BLOOD COUNT 3.84 K/uL (4.8-10.8)
[2017-10-23 18:53] LABS: ALBUMIN 3.1 gm/dl (3.4-5.0); ALT/SGPT 20 U/L (12-78); AST/SGOT 19 U/L (15-37); BLOOD UREA NITROGEN 21 mg/dl (7-18); CALCIUM 8.3 mg/dl (8.5-10.1); CARBON DIOXIDE 26 mmol/L (21-32); CREATININE 1.16 mg/dl (0.60-1.40); GLUCOSE 85 mg/dl (70-99); POTASSIUM 3.9 mmol/L (3.5-5.1); SODIUM 140 mmol/L (136-145)
[2017-10-23 18:56] LABS: ALKALINE PHOSPHATASE 59 U/L (45-117)
== END | disposition home or self-care (01) ==
LOC: C.LABSPEC 17:18
PROVIDERS: ATTEND Internal Medicine Hematology & Oncology
DX: C16.0 Malignant neoplasm of cardia (principal)

== ENCOUNTER → 2017-10-29 | Outpatient (CLI) | payer BC ==
[2017-10-29 14:40] LABS: BASO % 0.4 %; BASO ABS # 0.01 K/uL (0-0.2); EOS % 3.5 %; EOS ABS # 0.09 K/uL (0-0.5); HEMATOCRIT 34.8 % (42-52); HEMOGLOBIN 11.6 g/dL (14.0-18.0); IG# 0.01 K/uL (0.00-0.02); LYMPH % 44.9 %; LYMPH ABS # 1.14 K/uL (1.2-3.4); MEAN CELL VOLUME 90.4 fL (80-100); MEAN CORPUSCULAR HEMOGLOBIN 30.1 pg (25-34); MEAN CORPUSCULAR HGB CONC 33.3 g/dl (32-36); MEAN PLATELET VOLUME 10.2 fL (7.4-10.4); MONO ABS # 0.05 K/uL (0.11-0.59); NEUT % 48.8 %; NEUT ABS # 1.24 K/uL (1.4-6.5); PLATELET COUNT 180 K/uL (130-400); RED CELL DISTRIBUTION WIDTH CV 17.4 % (11.5-14.5); RED CELL DISTRIBUTION WIDTH SD 56.6 fL (36.4-46.3); WHITE BLOOD COUNT 2.54 K/uL (4.8-10.8)
[2017-10-29 15:03] LABS: ALT/SGPT 21 U/L (12-78); AST/SGOT 27 U/L (15-37); BLOOD UREA NITROGEN 22 mg/dl (7-18); CALCIUM 8.6 mg/dl (8.5-10.1); CARBON DIOXIDE 25 mmol/L (21-32); CREATININE 1.25 mg/dl (0.60-1.40); GLUCOSE 128 mg/dl (70-99); POTASSIUM 3.5 mmol/L (3.5-5.1); SODIUM 140 mmol/L (136-145)
[2017-10-29 15:06] LABS: ALKALINE PHOSPHATASE 62 U/L (45-117)
== END | disposition home or self-care (01) ==
LOC: C.LABSPEC 13:06
PROVIDERS: ATTEND Internal Medicine Hematology & Oncology
DX: C16.0 Malignant neoplasm of cardia (principal)

== ENCOUNTER → 2017-10-30 | Outpatient (CLI) | payer BC | END | disposition home or self-care (01) | LOC: C.LABSPEC 12:32 | PROVIDERS: ATTEND Internal Medicine Hematology & Oncology | DX: C16.0 Malignant neoplasm of cardia (principal) ==

== ENCOUNTER → 2017-10-31 | Outpatient (CLI) | payer BC ==
[2017-10-31 11:42] LABS: HEMATOCRIT 33.6 % (42-52); HEMOGLOBIN 11.3 g/dL (14.0-18.0); MEAN CELL VOLUME 88.9 fL (80-100); MEAN CORPUSCULAR HEMOGLOBIN 29.9 pg (25-34); MEAN CORPUSCULAR HGB CONC 33.6 g/dl (32-36); MEAN PLATELET VOLUME 9.5 fL (7.4-10.4); PLATELET COUNT 226 K/uL (130-400); RED CELL DISTRIBUTION WIDTH CV 17.3 % (11.5-14.5); RED CELL DISTRIBUTION WIDTH SD 56.3 fL (36.4-46.3); WHITE BLOOD COUNT 1.65 K/uL (4.8-10.8)
== END | disposition home or self-care (01) ==
LOC: C.LABSPEC 11:18
PROVIDERS: ATTEND Internal Medicine Hematology & Oncology
DX: C16.0 Malignant neoplasm of cardia (principal)

== ENCOUNTER → 2018-01-01 | Outpatient (CLI) | payer BC ==
[~2018-01-01] MED LIST changes: -DUTA0.5C PO; -LRS10 PO; +METHPOW7 PO; +MISCCAP80 PO; +PREN1PAK; -PSYL48.59 PO; +VANC1CAP3 PO
[2018-01-01 13:39] LABS: HEMATOCRIT 35.3 % (42-52); HEMOGLOBIN 11.4 g/dL (14.0-18.0); MEAN CELL VOLUME 91.9 fL (80-100); MEAN CORPUSCULAR HEMOGLOBIN 29.7 pg (25-34); MEAN CORPUSCULAR HGB CONC 32.3 g/dl (32-36); MEAN PLATELET VOLUME 10.4 fL (7.4-10.4); PLATELET COUNT 184 K/uL (130-400); RED CELL DISTRIBUTION WIDTH CV 17.9 % (11.5-14.5); RED CELL DISTRIBUTION WIDTH SD 60.2 fL (36.4-46.3); WHITE BLOOD COUNT 2.23 K/uL (4.8-10.8)
[2018-01-01 13:42] LABS: BASO % 0.4 %; BASO ABS # 0.01 K/uL (0-0.2); EOS % 1.8 %; EOS ABS # 0.04 K/uL (0-0.5); LYMPH % 72.2 %; LYMPH ABS # 1.61 K/uL (1.2-3.4); MONO % 4.5 %; NEUT % 21.1 %; NEUT ABS # 0.47 K/uL (1.4-6.5)
[2018-01-01 13:55] LABS: ALBUMIN 3.2 gm/dl (3.4-5.0); ALKALINE PHOSPHATASE 54 U/L (45-117); ALT/SGPT 22 U/L (12-78); AST/SGOT 19 U/L (15-37); BLOOD UREA NITROGEN 15 mg/dl (7-18); CALCIUM 8.4 mg/dl (8.5-10.1); CARBON DIOXIDE 27 mmol/L (21-32); CREATININE 1.04 mg/dl (0.60-1.40); GLUCOSE 85 mg/dl (70-99); POTASSIUM 3.9 mmol/L (3.5-5.1); SODIUM 140 mmol/L (136-145); TOTAL PROTEIN 5.9 gm/dl (6.4-8.2)
== END | disposition home or self-care (01) ==
LOC: C.LABSPEC 12:39
PROVIDERS: ATTEND Internal Medicine Hematology & Oncology
DX: C16.0 Malignant neoplasm of cardia (principal)

== ENCOUNTER → 2018-01-21 | Outpatient (CLI) | payer BC ==
[2018-01-21 13:25] VITALS: BP 124/74; PULSE 87; TEMP 36.6; O2SAT 97
--- NOTE | 2018-01-21 16:55 | Radiation Oncology Follow-Up ---
Radiation Oncology Follow-Up Date of Visit Jan 21, 2018. 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 Radiation completed 2007 received 4500 cGy Status post resection September 2007 complete response PET/CT 07/04/2011 mildly enlarged lymph nodes right chest and supraclavicular region Status post needle aspiration biopsy showing metastatic adenocarcinoma 2011 Systemic chemotherapy Onset of frequent headaches and finding of brain metastasis Status post craniotomy with resection 05/28/2017, metastatic adenocarcinoma Status post completion of radiation therapy 07/09/2017. He received 3000 cGy utilizing SBRT Last Edited By: Juanita Calixto on Jul 15, 2017 16:00 History of Present Illness Mr. Fernandez presents with a history of recurrent metastatic esophageal cancer. As per the , the patient was recently going to restart chemotherapy due to recurrent disease (medical records from [facility] are unavailable at the time of consultation). The patient did have previous chemotherapy and radiation therapy in the past. More recently, the patient was complaining of issues with memory. Dr. Ben Vargas , his primary care physician, ordered a CT of the head without contrast on 05/17/2017 which revealed: "IMPRESSION: 1. Heterogeneous hyperattenuating intraaxial mass containing central calcifications involves the left temporal lobe measuring up to 5.2 cm. Extensive associated vasogenic edema is noted with sulcal effacement and mild rightward midline shift of 2 mm. Primary glial neoplasm or metastatic disease are differential considerations. Neurosurgical consultation and follow-up MRI of the brain with and without contrast recommended. 2. 11 x 4 mm focal area of low-attenuation of the left thalamus medial to the mass may reflect reactive edema or small infarction. 3. Atrophy with chronic microvascular ischemic changes." Dr. Ben Vargas has sent the patient [facility] for direct admission. We are now being asked to evaluate the patient for consideration of radiation therapy. Currently, the patient is stable overall. The patient denies significant headaches however he does admit to issues with short-term memory. He does have some fatigue. He completed radiation therapy with SBRT 07/09/2017. He received 3000 cGy in 5 fractions. Interim History Patient has been seen December 12, 2017. He had been hospitalized due to Clostridium difficile. He was having problems with headaches and an MRI was obtained. This did not show any intracranial lesions. There was no evidence of recurrent disease. He did have a finding of a 4 mm enhancing lesion favoring a schwannoma. Patient has been having some feelings of being off balance. He is walking unsteady. He feels that he is veering to the left. His stated she feels that he is veering to the right. Last week he leaned over to pick something up off of the floor and lost his balance. He fell to the floor. When trying to get up he fell again. He did not sustain any injuries. She was concerned that the small change noted on the MRI could be causing some of his issues. Allergies Coded Allergies: Iodinated Diagnostic Agents (Verified Adverse Reaction, Intermediate, HYPOTENSION, 08/05/17) Home Medications Scheduled Cholecalciferol (Vitamin D3), 2,000 UNITS PO QAM Dexamethasone (Decadron), 20 MG PO UD Finasteride (Proscar), 5 MG PO QAM Fluoxetine (Prozac), 40 MG PO QAM Lorazepam (Ativan), 1 MG PO BID Melatonin (Melatonin), 10-20 MG PO HS Methylcellulose (Laxative) (Citrucel Fiber Laxative), 1 TBS PO DAILY Omeprazole (Omeprazole), 20 MG PO BID Probiotic Product (Probiotic), 1 CAP PO BID Simvastatin (Zocor), 40 MG PO QAM Tamsulosin Hcl (Flomax), 0.4 MG PO QAM Vancomycin Hcl (Vancomycin), 250 MG PO QID Scheduled PRN Ondansetron Hcl (Zofran), 8 MG PO Q8H PRN for Nausea Polyethylene Glycol 3350 (Miralax), 17 GM PO DAILY PRN for Constipation Senna (Senokot), 1 TAB PO UD PRN for Constipation Sennosides-Docusate Sodium (Stool Softener), 1 TAB PO DAILY PRN for Constipation Miscellaneous Medications W/O Vit A W/ Fe Carbo (Citranatal Dha) Review of Systems Gastrointestinal: Symptoms: WNL GI Comments: Did have c dif, now is ok Oral: Symptoms: No Problems Respiratory: Symptoms: SOB With Exertion Urinary: Symptoms: WNL Skin: Symptoms: No Problems Physical Exam Vital Signs Date Time Temp Pulse Resp B/P (MAP) Pulse Ox O2 Delivery O2 Flow Rate FiO2 01/21/18 13:25 36.6 87 20 124/74 97 Fatigue: None General Appearance: no apparent distress Eyes: normal inspection, EOMI ENT: normal ENT inspection, hearing grossly normal Respiratory/Chest: lungs clear, no respiratory distress, no accessory muscle use Cardiovascular: regular rate, rhythm, no gallop, no murmur Extremities: no pedal edema Neurologic/Psychiatric: scale adjuster II-XII nml as tested, no motor/sensory deficits, alert, normal mood/affect Skin: warm/dry Pain Management Patient Reports Pain: No Pain Location: None Patient Preferred Pain Scale: 0 - 10 Initial Pain Intensity: 0.0 Pain Management Plan He denies pain therefore requires no pain management. Laboratory Laboratory Results: were reviewed Pathology Pathology Results: were reviewed, and pertinent findings noted in HPI Imaging Imaging Studies: were reviewed Imaging Comments Reviewed in the interim history. Assessment & Plan Plan: The patient was seen and examined by Dr. Lacy. His neurologic examination is not showing any issues with balance. Continue regular follow-up with his primary care provider. If he continues to have problems they are going to make an appointment with ENT. We previously discussed and planned an MRI for February. He will have a follow-up visit after completing the MRI. If he has any further issues or difficulty with scheduling an ENT appointment they are to call our office. Assessment & Plan (Attending) I agree with note created by Juanita Calixto PA-C. I reviewed the patient's chart and information with her. I have examined and evaluated the patient. I reviewed relevant clinical information and answered the patient's and/or family' s questions. MANAGER MASS Total Time In Follow-Up I spent 20 minutes speaking to the patient in performing examination. I spent 15 minutes reviewing information and completing this note. AK Total Time (Attending) In Follow-Up I spent 15 minutes examining and counseling the patient. MANAGER MASS Copy To Butch Ribera M.D.; Tahir Mercado, D.O.
== END | disposition home or self-care (01) ==
LOC: C.ONC 13:14
PROVIDERS: ATTEND Physician Assistant Medical
DX: Z08 Encounter for follow-up examination after completed treatment for malignant neoplasm (principal); Z92.3 Personal history of irradiation; Z85.841 Personal history of malignant neoplasm of brain; Z85.09 Personal history of malignant neoplasm of other digestive organs

== ENCOUNTER → 2018-02-04 | Outpatient (CLI) | payer BC ==
--- NOTE | 2018-02-04 15:15 | DIAGNOSTIC IMAGING REPORT ---
(CHEST) THORAX WITHOUT CLINICAL HISTORY: 82 years-old Male with GASTROESOPHAGEAL CA. Follow-up study in a patient with history of gastroesophageal carcinoma TECHNIQUE: Multiaxial CT images of the chest were performed without contrast. A dose lowering technique was utilized adhering to the principles of ALARA. COMPARISON: CT abdomen and pelvis of same day, CT chest 10/01/2017. FINDINGS: Unchanged size and appearance of the 6 x 7 mm right supraclavicular lymph node on image 31 series 4. No new or progressive adenopathy identified. No dominant thyroid nodule. Heart is normal in size without pericardial effusion. 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 Coronary arterial calcifications are noted. Moderate calcification of the thoracic aorta without aneurysm. Pleural calcification of the right hemithorax with unchanged pleural thickening. 2.2 x 1.4 cm pleural-based nodularity of the right lung base appears unchanged, image 228 series 4. Evaluation of the lung parenchyma is limited secondary to respiratory motion. 8 mm solid nodule of the right middle lobe appears unchanged, image 175 series 4. Stable 3 mm solid nodule of the right upper lobe, image 111 series 4. There are a few new solid nodules of the intersegmental right upper lobe measuring up to 3 mm, image 122 series 4 for example and also image 146 series 4. Unchanged 8 mm groundglass opacity of the right upper lobe on image 146 series 4. 4 mm solid nodule of the right lower lobe on image 193 series 4 is unchanged. Progressive solid nodules of the left upper lobe are seen measuring up to 5 mm, image 85 series 4. Previously, nodules of the left upper lobe are seen measuring up to 3 mm. Subsegmental groundglass opacities of the lung bases suggest, patient atelectasis/scarring. Fissural nodule measuring 7 mm of the right lower lobe appears unchanged. Central airways appear patent. Prior subcutaneous resection with gastric pull-through. Unchanged hypodense lesion about the posterior right hepatic lobe. Soft tissues are unremarkable. The bones appear intact. No suspicious lytic or blastic bony lesions. IMPRESSION: 1. Progressive bilateral solid pulmonary nodules seen notably within the bilateral upper lobes measuring up to 5 mm are suspicious for pulmonary metastasis. 2. No new or progressive adenopathy. Unchanged mildly prominent right supraclavicular lymph node. 3. Chronic right-sided pleural thickening/nodularity with pleural calcifications. 4. Prior esophageal resection with gastric pull-through. 5. Cardiomegaly. Electronically signed by: Usama Wallace M.D. 02/04/2018 3:14 PM Dictated Date/Time: 02/04/2018 3:00 PM
--- NOTE | 2018-02-04 15:17 | DIAGNOSTIC IMAGING REPORT ---
CT OF THE ABDOMEN AND PELVIS WITHOUT CONTRAST CLINICAL HISTORY: Gastroesophageal cancer. COMPARISON STUDY: CT of the abdomen and pelvis December 06, 2017. TECHNIQUE: Axial images of the abdomen and pelvis were obtained without IV contrast. Images were reviewed in the axial, sagittal, and coronal planes. A dose lowering technique was utilized adhering to the principles of ALARA. FINDINGS: Please note that the chest CT will be reported separately. The patient is status post esophagectomy with gastric pull-up. A trace right pleural effusion with pleural thickening is noted. Right lower lobe opacity favors round atelectasis. A right middle lobe nodule is better depicted on the chest CT. A 1.5 cm water attenuation right hepatic lobe lesion is unchanged. There are no suspicious hepatic lesions. Evaluation is suboptimal on this unenhanced exam. No abdominal or pelvic lymphadenopathy is present. A 6 cm water attenuation right renal lesion is suboptimally assessed on this unenhanced exam but favors a cyst. There is colonic diverticulosis. There is mild pericolonic infiltration, most evident at the level of the distal descending and proximal sigmoid colon. This has improved since exam of December 06, 2017. No pneumatosis, free air or portal venous gas is present. There are no suspicious osseous lesions. There is no lymphadenopathy. The prostate gland is markedly enlarged. IMPRESSION: 1. No evidence for metastatic disease within the abdomen or pelvis on unenhanced exam. 2. Mild pericolonic infiltration which is diminished when compared to exam of December 06, 2017. This favors a mild colitis. Electronically signed by: Nicholas Zuñiga M.D. 02/04/2018 3:16 PM Dictated Date/Time: 02/04/2018 3:03 PM
== END | disposition home or self-care (01) ==
LOC: C.CTS 14:39
PROVIDERS: ATTEND Nurse Practitioner Family
DX: C16.0 Malignant neoplasm of cardia (principal)